=== PATIENT | male | born 1960 | race Caucasian/White ===

== ENCOUNTER 2021-01-29 18:45 | Inpatient (IN) | payer BC ==
[2021-01-29] MEDS ORDERED: IPRATROPIUM-ALBUTEROL 3 ML NEB INHALATION STA (18:52)
--- NOTE | 2021-01-29 18:53 | ED ---
General Adult HPI - General Stated complaint: LAURENCE Time Seen by Provider: 01/29/21 18:51 - History of Present Illness Initial comments: Delano is a 60-year-old male with history of COPD, doesn't have established primary care in the stay as he recently moved from [place]. Patient presents the ER today via private vehicle for evaluation of shortness of breath and shivering. 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 Patient I'll 911 however they live early in the risk and a be a delay in EMS arrival therefore is undecided drive to the hospital. Upon arrival the patient was feeling too weak to get himself out of the car and required assistance. - Related Data Home Medications Medication Instructions Recorded Confirmed No Known Home Medications 01/29/21 01/29/21 Allergies Allergy/AdvReac Type Severity Reaction Status Date / Time No Known Allergies Allergy Verified 01/29/21 20:17 Review of Systems ROS Statement: Those systems with pertinent positive or pertinent negative responses have been documented in the HPI. ROS Other: All systems not noted in ROS Statement are negative. General Exam - General Exam Comments Initial Comments: Physical Exam GENERAL: Pale, irwin, covered in drywall dust HENT: Normocephalic, Atraumatic. EYES: PERRL, EOMI PULMONARY: Mild crackles CARDIOVASCULAR: Irregular ABDOMEN: Soft and nontender with normal bowel sounds. SKIN: Irwin : Deferred NEUROLOGIC: Patient is alert and oriented x3. Moving all extremities spontaneously MUSCULOSKELETAL: Normal extremities with adequate strength and full range of motion. No lower extremity swelling or edema. No calf tenderness. PSYCHIATRIC: Normal psychiatric evaluation. Course Vital Signs 01/29/21 01/29/21 01/29/21 18:48 18:54 19:02 Temperature 97.3 F L Pulse Rate 67 76 63 Respiratory 20 22 22 Rate Blood Pressure 136/96 O2 Sat by Pulse 100 Oximetry 01/29/21 19:12 Temperature Pulse Rate 74 Respiratory 24 Rate Blood Pressure 128/84 O2 Sat by Pulse 100 Oximetry EKG Findings - EKG Comments: EKG Findings:: EKG was obtained due to chest pain, EKG was obtained at 1900, rate is 61 rhythm is narrow complex irregular atrial fibrillation, QRS 90, QTC [address] elevations in 23 and aVF, ST depressions in aVL and aVR and V1 and V2. This concerning for an inferior wall AR. Medical Decision Making - Medical Decision Making Patient was pulled out of a private vehicle by nursing staff placed in a wheelchair and rolled to the resuscitation bay, patient was awake alert and oriented shivering complaining of being cold mild chest pain, shortness of breath generalized weakness Patient's arms were cleaned and IV access was obtained, he was placed on supplemental oxygen, EKG was obtained and suggestive of an inferior wall AR Code STEMI was activated, patient care was discussed with Dr. Wong Cath is currently occupied with a STEMI, Dr. Wong recommends thrombolytics Patient care was discussed with pharmacist Leanne who ordered appropriate weight- based thrombolytics for STEMI Patient care was discussed with Dr. De of the [facility] hospitalist group as well as Dr. Newman lace stripper who accepts the admission Patient received IV fluids, aspirin, morphine and heparin nitro was held due to this being a inferior wall AR Receive telephone call from Dr. Wong, Work Force Advisor is no available, thrombolytics or at bedside have not been administered, patient to be transferred Work Force Advisor The patient remained awake alert oriented and hemodynamically stable at the time of transfer to Work Force Advisor - Lab Data Result diagrams: 01/29/21 18:59 01/29/21 18:59 Lab Results 01/29/21 01/29/21 01/29/21 Range/Units 18:59 18:59 18:59 WBC 19.4 H (3.8-10.6) k/uL RBC 4.73 (4.30-5.90) m/uL Hgb 15.5 (13.0-17.5) gm/dL Hct 46.8 (39.0-53.0) % MCV 99.1 (80.0-100.0) fL MCH 32.8 (25.0-35.0) pg MCHC 33.1 (31.0-37.0) g/dL RDW 14.1 (11.5-15.5) % Plt Count 290 (150-450) k/uL MPV 7.4 Neutrophils % (Manual) 59 % Lymphocytes % (Manual) 35 % Monocytes % (Manual) 3 % Eosinophils % (Manual) 3 % Neutrophils # (Manual) 11.45 H (1.3-7.7) k/uL Lymphocytes # (Manual) 6.79 H (1.0-4.8) k/uL Monocytes # (Manual) 0.58 (0-1.0) k/uL Eosinophils # (Manual) 0.58 (0-0.7) k/uL Nucleated RBCs 0 (0-0) /100 WBC Polychromasia Present PT 10.0 (9.0-12.0) sec INR 0.9 (<1.2) APTT 18.0 L (22.0-30.0) sec Sodium 142 (137-145) mmol/L Potassium 5.2 H (3.5-5.1) mmol/L Chloride 107 (98-107) mmol/L Carbon Dioxide 16 L (22-30) mmol/L Anion Gap 19 mmol/L BUN 34 H (9-20) mg/dL Creatinine 2.27 H (0.66-1.25) mg/dL Est GFR (CKD-EPI)AfAm 35 (>60 ml/min/1.73 sqM) Est GFR (CKD-EPI)NonAf 30 (>60 ml/min/1.73 sqM) Glucose 151 H (74-99) mg/dL Plasma Lactic Acid Dax (0.7-2.0) mmol/L Calcium 10.9 H (8.4-10.2) mg/dL Total Bilirubin 1.0 (0.2-1.3) mg/dL AST 41 (17-59) U/L ALT 24 (4-49) U/L Alkaline Phosphatase 95 (38-126) U/L Creatine Kinase 113 (55-170) U/L Troponin I (0.000-0.034) ng/mL Total Protein 7.8 (6.3-8.2) g/dL Albumin 5.1 H (3.5-5.0) g/dL Coronavirus (PCR) (Not Detectd) 01/29/21 01/29/21 01/29/21 Range/Units 18:59 18:59 18:59 WBC (3.8-10.6) k/uL RBC (4.30-5.90) m/uL Hgb (13.0-17.5) gm/dL Hct (39.0-53.0) % MCV (80.0-100.0) fL MCH (25.0-35.0) pg MCHC (31.0-37.0) g/dL RDW (11.5-15.5) % Plt Count (150-450) k/uL MPV Neutrophils % (Manual) % Lymphocytes % (Manual) % Monocytes % (Manual) % Eosinophils % (Manual) % Neutrophils # (Manual) (1.3-7.7) k/uL Lymphocytes # (Manual) (1.0-4.8) k/uL Monocytes # (Manual) (0-1.0) k/uL Eosinophils # (Manual) (0-0.7) k/uL Nucleated RBCs (0-0) /100 WBC Polychromasia PT (9.0-12.0) sec INR (<1.2) APTT (22.0-30.0) sec Sodium (137-145) mmol/L Potassium (3.5-5.1) mmol/L Chloride (98-107) mmol/L Carbon Dioxide (22-30) mmol/L Anion Gap mmol/L BUN (9-20) mg/dL Creatinine (0.66-1.25) mg/dL Est GFR (CKD-EPI)AfAm (>60 ml/min/1.73 sqM) Est GFR (CKD-EPI)NonAf (>60 ml/min/1.73 sqM) Glucose (74-99) mg/dL Plasma Lactic Acid Dax 9.2 H* (0.7-2.0) mmol/L Calcium (8.4-10.2) mg/dL Total Bilirubin (0.2-1.3) mg/dL AST (17-59) U/L ALT (4-49) U/L Alkaline Phosphatase (38-126) U/L Creatine Kinase (55-170) U/L Troponin I 0.019 (0.000-0.034) ng/mL Total Protein (6.3-8.2) g/dL Albumin (3.5-5.0) g/dL Coronavirus (PCR) Not Detected (Not Detectd) Disposition Clinical Impression: STEMI (ST elevation myocardial infarction) Disposition: ADMITTED IP TO THIS [facility] Condition: Serious Is patient prescribed a controlled substance at d/c from ED?: No
[2021-01-29] MEDS ORDERED: SODIUM CHLORIDE 0.9% 1,000 ML IV SCH (19:00)
[2021-01-29] MEDS ORDERED: NITROGLYCERIN SL TABS 0.4 MG TAB SUBLINGUAL PRN (19:01)
[2021-01-29] MEDS ORDERED: HEPARIN SODIUM 1,000 UN/ML (10ML VL) IV ONE (19:01)
[2021-01-29] MEDS ORDERED: ASPIRIN 81 MG PO STA (19:01)
[2021-01-29] MEDS: SODIUM CHLORIDE 0.9% 500 ML 500 ML IV SCH ×2 (19:05→22:42)
[2021-01-29] MEDS ORDERED: ATORVASTATIN 80 MG TAB PO STA ×2 (19:06→22:04)
--- NOTE | 2021-01-29 19:22 | XR ---
EXAMINATION TYPE: XR chest 1V portable DATE OF EXAM: 01/29/2021 COMPARISON: NONE HISTORY: Weakness. Chest pain TECHNIQUE: FINDINGS: Heart and mediastinum are normal. Lungs are clear of infiltrate. There is no pleural effusi on. There are chest leads. There are no hilar masses. IMPRESSION: No active cardiopulmonary disease.
[2021-01-29 19:24] LABS: HCT 46.8 % (39.0-53.0); HGB 15.5 gm/dL (13.0-17.5); MCH 32.8 pg (25.0-35.0); MCHC 33.1 g/dL (31.0-37.0); MCV 99.1 fL (80.0-100.0); Mean Platelet Volume 7.4; Platelet Count 290 k/uL (150-450); RBC 4.73 m/uL (4.30-5.90); RDW 14.1 % (11.5-15.5); WBC 19.4 k/uL (3.8-10.6)
[2021-01-29] MEDS ORDERED: NALOXONE 0.4 MG/ML 1 ML VIAL IV PRN (19:24)
[2021-01-29] MEDS ORDERED: MORPHINE SULFATE 4 MG/ML SYRINGE IV PRN (19:24)
[2021-01-29 19:26] LABS: Albumin 5.1 g/dL (3.5-5.0); Calcium 10.9 mg/dL (8.4-10.2); Potassium 5.2 mmol/L (3.5-5.1); Total Protein 7.8 g/dL (6.3-8.2)
[2021-01-29] MEDS ORDERED: ALTEPLASE IV ONE ×2 (19:30→19:45)
[2021-01-29 19:31] LABS: INR 0.9 (<1.2)
[2021-01-29 19:49] LABS: Eosinophils # (M) 0.58 k/uL (0-0.7); Lymphocytes # (M) 6.79 k/uL (1.0-4.8); Monocytes # (M) 0.58 k/uL (0-1.0); Neutrophils # (M) 11.45 k/uL (1.3-7.7); Neutrophils % (M) 59 %; Nucleated Red Blood Cells 0 /100 WBC (0-0); Polychromasia Present; Total Cells Counted 100
[2021-01-29] MEDS ORDERED: fentaNYL (PF) 50 MCG/ML 2 ML AMP ONE (19:54)
[2021-01-29] MEDS ORDERED: LIDOCAINE 1% INJ 10MG/ML (20 ML MDV) ONE (19:54)
[2021-01-29] MEDS ORDERED: LIDOCAINE 1% INJ 10MG/ML (20 ML MDV) SQ ONE (19:57)
[2021-01-29] MEDS ORDERED: SODIUM CHLORIDE 0.9% 1,000 ML IV ONE (20:00)
[2021-01-29] MEDS ORDERED: MIDAZOLAM 2 MG/2 ML VIAL IV ONE (20:00)
[2021-01-29] MEDS ORDERED: TIROFIBAN 12.5MG-250ML NS 250 ML IV ONE ×2 (20:15)
[2021-01-29] MEDS ORDERED: NOREPINEPHRINE 4 MG in SODIUM CHLORIDE 0.9% 250 ML IV ONE (20:15)
[2021-01-29] MEDS ORDERED: IOPAMIDOL-370 100ML BTL INJ ONE ×2 (20:27→20:31)
[2021-01-29] MEDS ORDERED: CLOPIDOGREL 75 MG TAB ONE (20:34)
[2021-01-29] MEDS ORDERED: CLOPIDOGREL 75 MG TAB PO ONE (20:47)
[2021-01-29 21:06] LABS: Glucose,Whole Blood 116 mg/dL (75-99)
--- NOTE | 2021-01-29 21:46 | CONS ---
CONSULTATION ADDENDUM TO CONSULTATION 01/29/2021: Our initial plan was that we were going to give thrombolytics, but first case was done expeditiously, so we have decided not to give thrombolytics but take to the for emergent cardiac catheterization, possible primary angioplasty. NITIN / FELY: [id number] / MTDD
--- NOTE | 2021-01-29 21:51 | CONS ---
CONSULTATION CHIEF COMPLAINT: Acute inferior wall myocardial infarction HISTORY OF PRESENT ILLNESS: This is a 60-year-old gentleman with history of hypertension who used to live in [place] and has moved to [place] about 6 months ago, comes in with sudden onset chest pain that started about half an hour prior to coming to the emergency room in the hospital. His EKG showed acute ST-segment elevation in the inferior leads. The ER doctor has called in a STEMI. I was at that time in the dental laboratory worker treating a patient who came earlier with acute anterolateral myocardial infarction. After talking to the java developer analyst who has not yet started the 1st angioplasty, i.e., it was decided the best thing to do would be to give thrombolytic to the patient. I spoke to the ER physician and advised to give thrombolytic therapy as per protocol. She is going to give whatever thrombolytic is available. The available thrombolytic in this hospital. We do not have a 2nd dental laboratory worker team nor do we have a 2nd manager presentation so thrombolytic is the best we can do at this time. After I finished the case I went and evaluated the patient in the emergency room. The patient was still in significant chest pain, but was hemodynamically stable, was in atrial fibrillation with controlled ventricular rate. There were waiting to get the thrombolytic from pharmacy. PAST MEDICAL HISTORY: Significant for hypertension. MEDICATIONS: He states that he is not on any medications. ALLERGIES: No known drug allergies. FAMILY HISTORY: Negative for premature coronary artery disease. SOCIAL HISTORY: Significant for smoking. There is no history of EtOH abuse. He uses marijuana occasionally. REVIEW OF SYSTEMS: HEENT is unremarkable. CARDIAC as described above. RESPIRATORY negative. GI negative. GENITOURINARY: Negative. ALLERGY/IMMUNOLOGY: Negative. SKIN negative. MUSCULOSKELETAL negative. ENDOCRINE negative. DERM: Negative. CONSTITUTIONAL: Negative. ONCOLOGICAL negative. INFORMATION SCIENTIST: Negative. EXAM: The patient is comfortable at rest. Vital signs are stable. There is no jugular venous distention. Carotid upstroke is normal. There is no bruit. CHEST exam reveals good air entry bilaterally. HEART exam reveals first and second heart sounds. No gallop. No murmur. No rub. ABDOMEN is soft, nontender. Examination of EXTREMITIES did not reveal any edema. Peripheral pulses are felt. I do not have labs at this time. ASSESSMENT: Acute inferior wall myocardial infarction. PLAN: Patient will receive thrombolytics per protocol. He will also receive aspirin, heparin, IV fluids and depending upon his response, we will proceed with cardiac catheterization. I explained to the patient the rationale for giving thrombolytics. He understands and is in agreement with the plans. NITIN / FELY: [id number] /
[2021-01-30 04:27] LABS: Basophils % (A) 0 %; Eosinophils % (A) 1 %; HCT 37.3 % (39.0-53.0); Lymphocytes # (A) 1.6 k/uL (1.0-4.8); Lymphocytes % (A) 17 %; MCH 32.4 pg (25.0-35.0); MCHC 32.8 g/dL (31.0-37.0); MCV 98.7 fL (80.0-100.0); Mean Platelet Volume 7.8; Monocytes # (A) 0.6 k/uL (0-1.0); Monocytes % (A) 7 %; Neutrophils # (A) 6.6 k/uL (1.3-7.7); Neutrophils % (A) 73 %; Platelet Count 183 k/uL (150-450); RBC 3.77 m/uL (4.30-5.90); RDW 14.2 % (11.5-15.5)
[2021-01-30 04:39] LABS: HGB 12.2 gm/dL (13.0-17.5)
[2021-01-30 04:57] LABS: Calcium 8.9 mg/dL (8.4-10.2); Potassium 5.1 mmol/L (3.5-5.1)
--- NOTE | 2021-01-30 08:10 | US ---
EXAMINATION TYPE: US renals and bladder DATE OF EXAM: 01/30/2021 COMPARISON: NONE CLINICAL HISTORY: 60-year-old male MOR[place]. TECHNIQUE: Multiple sonographic images of the kidneys and bladder are obtained. FINDINGS: Coach Cleaner notes: Exam done portable. EXAM MEASUREMENTS: Right Kidney: 10.3 x 4.0 x 4.6 cm Left Kidney: 10.0 x 3.9 x 3.5 cm Right Kidney: Scattered small cysts with largest measuring 1.4 x 1.7 x 1.7cm Left Kidney: A few small cortical cysts, largest measuring 1.0cm No hydronephrosis on either side. Bladder: wnl Bilateral Jets seen: yes IMPRESSION: Scattered benign cortical cysts measuring up to 1.7 cm on the right and 1.0 cm on the left. No hydron ephrosis.
--- NOTE | 2021-01-30 08:16 | PTCA ---
PERCUTANEOUSTRANS CORORONARY ANGIOGRAPHY DATE OF SERVICE: 01/29/2021 PROCEDURE: PTCA and stenting of a totally occluded proximal RCA performed in the setting of an acute inferior ST-elevation myocardial infarction. PERFORMED BY: Dr. Mary Velez. Moderate conscious sedation time was 35 minutes. Patient was administered Versed. Oxygen saturation, hemodynamics and EKG were monitored closely. 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 Wong, who performed a cardiac cath which revealed total occlusion of the proximal RCA. I performed PTCA expeditiously and then took selective injections of the left coronary artery and checked LV pressures but did not perform LV gram. The LV end-diastolic pressure was 8 mmHg. There was no gradient. The left coronary system did not have any significant disease. The LAD and circumflex had only minor irregularities. RCA was a dominant vessel which was totally occluded in the proximal portion with a significant amount of thrombus burden. CUFFER PROCEDURE DETAILS: A standard right Kevin guide catheter was used to cannulate the right coronary artery. A run-through wire was used to cross the lesion. A 3.0 caliber 15 mm Trek balloon was used to pre-dilate the lesion. Multiple inflations were given with some recoil. I then deployed an 18 mm long Xience stent of 3.25 caliber and 18 mm length. Postdilatation was performed in the mid segment with a 3.5 caliber 15 mm long NC Trek balloon for 30 seconds at 12 atmospheres. Patient had chest pain and inferior ST elevation. Excellent angiographic result was achieved with remarkable improvement in angiographic appearance and flow. There was a IRENE-3 flow. There was complete resolution of chest pain and near-normalization of the EKG. Excellent result was achieved. Reperfusion was accomplished within 83 minutes. We had another acute PA on the table when patient arrived to the ER. Excellent result was achieved. Results were discussed with the patient and family. An Angio-Seal device was used to secure hemostasis. The patient was sent to the ICU in stable condition. Smoking cessation discussion occurred. He was advised to work with smoking cessation. The patient will be on dual antiplatelet therapy and beta blockers. He received heparin and Aggrastat drip. ACT was 255. The patient received 600 mg of Plavix orally. He received Levophed drip transiently. The patient was off the Levophed drip. He was sent to ICU only on an Aggrastat drip. NITIN / DRAKEN: [id number] /
[2021-01-30] MEDS: SODIUM CHLORIDE 0.9% 1,000 ML IV SCH ×2 (08:51→08:52)
--- NOTE | 2021-01-30 09:00 | P.CNPUL ---
History of Present Illness Consult date: 01/30/21 Reason for consult: chest pain History of present illness: 60-year-old male patient came in with an acute inferior wall myocardial infarction. Taken to the Compliance And Control Analyst and the patient was found to have a total RCA occlusion, proximal RCA and the patient underwent an emergent angioplasty and stenting of the RCA. Troponins peaked at 46. Patient currently is in the intensive care unit. Free of any chest pain and hemodynamically stable on no pr essors. He had an acute kidney injury which is also improving and creatinine is down to 1.7. Is currently on a combination of aspirin and Plavix. He is also on high-dose statins. Overnight, no cardiac arrhythmias of been noted. Left ventricle end-diastolic pressure was nonelevated on the cardiac catheterization and echocardiogram showing preserved LV function with an ejection fraction of 40-45%. He is a chronic smoker. No other major risk factors. Note that the patient was in nature fibrillation at time of admission along with ST segment elevation in the inferior leads and subsequently post cardiac catheterization and stenting he converted him to normal sinus rhythm. 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 Review of Systems Constitutional: Reports as per HPI Eyes: denies as per HPI, denies blurred vision, denies bulging eye, denies decreased vision, denies diplopia, denies discharge, denies dry eye, denies irritation, denies itching, denies pain, denies photophobia, denies loss of peripheral vision, denies loss of vision, denies tunnel vision/blind spots Ears: deny: decreased hearing, ear discharge, earache, tinnitus Ears, nose, mouth and throat: Reports as per HPI Cardiovascular: Reports as per HPI, Reports chest pain Respiratory: Reports as per HPI Gastrointestinal: Reports as per HPI Genitourinary: Reports as per HPI Musculoskeletal: Reports as per HPI Musculoskeletal: absent: ankle pain, ankle stiffness, ankle swelling, as per HPI, elbow pain, elbow stiffness, elbow swelling, foot pain, foot stiffness, foot swelling, hand pain, hand stiffness, hand swelling, hip pain, hip stiffness, hip swelling, knee pain, knee stiffness, knee swelling, shoulder pain, shoulder stiffness, shoulder swelling, wrist pain, wrist stiffness, wrist swelling Integumentary: Reports as per HPI Neurological: Reports as per HPI Psychiatric: Reports as per HPI Endocrine: Reports as per HPI Hematologic/Lymphatic: Reports as per HPI Allergic/Immunologic: Reports as per HPI Past Medical History Past Medical History: COPD History of Any Multi-Drug Resistant Organisms: None Reported Past Surgical History: No Surgical Hx Reported Additional Past Anesthesia/Blood Transfusion Reaction / Comment(s): No Hx of transfusion Smoking Status: Current every day smoker Past Alcohol Use History: Rare Past Drug Use History: None Reported Medications and Allergies Home Medications Medication Instructions Recorded Confirmed Type No Known Home Medications 01/29/21 01/29/21 History Allergies Allergy/AdvReac Type Severity Reaction Status Date / Time No Known Allergies Allergy Verified 01/29/21 20:17 Physical Exam Vitals: Vital Signs Temp Pulse Resp BP Pulse Ox 01/30/21 07:00 48 L 16 128/74 98 01/30/21 06:30 84 21 115/78 97 01/30/21 06:00 53 L 15 114/73 98 01/30/21 05:30 62 20 121/71 97 01/30/21 05:00 57 L 13 113/69 96 01/30/21 04:30 62 12 116/74 97 01/30/21 04:00 55 L 16 107/69 98 01/30/21 03:30 58 L 16 108/70 98 01/30/21 03:00 60 17 113/69 97 01/30/21 02:30 56 L 13 112/70 98 01/30/21 02:00 56 L 14 102/71 98 01/30/21 01:30 56 L 13 107/75 98 01/30/21 01:00 58 L 16 113/72 98 01/30/21 00:30 54 L 16 106/74 98 01/30/21 00:00 87 15 96/68 98 01/29/21 23:30 87 15 109/75 98 01/29/21 23:00 77 20 99/75 98 01/29/21 22:30 79 17 98/64 98 01/29/21 22:00 77 16 95/71 98 01/29/21 21:30 98.6 F 78 18 101/70 98 01/29/21 21:04 93 6 L 01/29/21 19:12 74 24 128/84 100 01/29/21 19:02 63 22 01/29/21 18:54 76 22 01/29/21 18:48 97.3 F L 67 20 136/96 100 Intake and Output 01/29/21 01/30/21 01/30/21 22:59 06:59 14:59 Intake Total 963 900 Output Total 175 810 Balance 788 90 Intake: IV 963 900 Sodium Chloride 0.9% 1, 200 900 000 ml @ 100 mls/hr IV . Q10H ON LICENSE OF [facility] Rx#:[id number] Output: Urine 175 810 Other: Weight 64.8 kg 64.8 kg The patient appeared well nourished and normally developed. Vital signs as documented. Head exam is unremarkable. No scleral icterus or corneal arcus noted. Neck is without jugular venous distension, thyromegaly, or carotid bruits. Carotid upstrokes are brisk bilaterally. Lungs are clear to auscultation and percussion. Cardiac exam reveals the PMI to be normally sized and situated. Rhythm is regular. First and second heart sounds normal. No murmurs, rubs or gallops. Abdominal exam reveals normal bowel sounds, no masses, no organomegaly and no aortic enlargement. Extremities are nonedematous and both femoral and pedal pulses are normal.Examination of the skin revealed no evidence of significant rashes, suspicious appearing nevi or other concerning lesions.Neurologically, the patient is awake and alert and the patient does not have any focal neurological deficit. Cranial nerves are essentially intact. Results - Laboratory Findings CBC and BMP: 01/30/21 04:12 01/30/21 04:12 PT/INR, D-dimer PT 10.0 sec (9.0-12.0) 01/29/21 18:59 INR 0.9 (<1.2) 01/29/21 18:59 Abnormal lab findings: Abnormal Labs 01/29/21 01/29/21 01/29/21 18:59 18:59 18:59 WBC 19.4 H RBC Hgb Hct Neutrophils # (Manual) 11.45 H Lymphocytes # (Manual) 6.79 H APTT 18.0 L Sodium Potassium 5.2 H Chloride Carbon Dioxide 16 L BUN 34 H Creatinine 2.27 H Glucose 151 H POC Glucose (mg/dL) Plasma Lactic Acid Dax Calcium 10.9 H Troponin I Albumin 5.1 H 01/29/21 01/29/21 01/29/21 18:59 21:05 22:07 WBC RBC Hgb Hct Neutrophils # (Manual) Lymphocytes # (Manual) APTT Sodium Potassium Chloride Carbon Dioxide BUN Creatinine Glucose POC Glucose (mg/dL) 116 H Plasma Lactic Acid Dax 9.2 H* Calcium Troponin I 7.010 H* Albumin 01/30/21 01/30/21 01/30/21 01:13 04:12 04:12 WBC RBC 3.77 L Hgb 12.2 L D Hct 37.3 L Neutrophils # (Manual) Lymphocytes # (Manual) APTT Sodium 135 L Potassium Chloride 110 H Carbon Dioxide 19 L BUN 36 H Creatinine 1.74 H Glucose 116 H POC Glucose (mg/dL) Plasma Lactic Acid Dax Calcium Troponin I 28.300 H* Albumin 01/30/21 04:12 WBC RBC Hgb Hct Neutrophils # (Manual) Lymphocytes # (Manual) APTT Sodium Potassium Chloride Carbon Dioxide BUN Creatinine Glucose POC Glucose (mg/dL) Plasma Lactic Acid Dax Calcium Troponin I 46.400 H* Albumin - Diagnostic Findings Chest x-ray: image reviewed Assessment and Plan Plan: [address] segment elevation myocardial infarction. Posterior emergent cardiac catheterization and stenting of the RCA. Patient is currently free of any chest pain and hemodynamically stable being monitored in the intensive care unit. Cardiac rhythm is sinus. Echocardiogram is in progress. Estimated ejection fraction is around 40-45% and the patient's left anterior end-diastolic pressure is nonelevated. 2 acute atrial fibrillation with STEMI, converted into normal sinus rhythm. Currently hemodynamically stable. No hypotension 3 acute kidney injury, improving and the creatinine is down to 1.7 4 chronic smoker currently smoking less than a pack of cigarettes a day 5 COPD, mild, inactive, stable Plan Complete Echocardiogram Aspirin and Plavix High-dose statins with Lipitor 80 mg by mouth daily awaiting LDL levels Metoprolol 12. 5 mg by mouth twice a day Smoking cessation counseling Nicotine patch if needed Cardiology follow-up.
--- NOTE | 2021-01-30 09:52 | ECHOF ---
Referral Reason:LV function MEASUREMENTS -------- HEIGHT: 182.9 cm WEIGHT: 68.0 kg BP: 128/74 RVIDd: 2.7 cm (< 3.3) IVSd: 0.9 cm (0.6 - 1.1) LVIDd: 4.1 cm (3.9 - 5.3) LVPWd: 1.3 cm (0.6 - 1.1) IVSs: 1.2 cm LVIDs: 3.8 cm LVPWs: 1.4 cm LA Diam: 3.8 cm (2.7 - 3.8) Ao Diam: 3.6 cm (2.0 - 3.7) AV Cusp: 1.6 cm (1.5 - 2.6) MV EXCURSION: 21.150 mm (> 18.000) MV EF SLOPE: 146 mm/s (70 - 150) EPSS: 0.1 cm MV E Geo: 0.73 m/s MV DecT: 236 ms MV A Geo: 0.53 m/s MV E/A Ratio: 1.36 RAP: 5.00 mmHg RVSP: 13.59 mmHg FINDINGS -------- Sinus rhythm. This was a technically good study. The left ventricular size is normal. Left ventricular wall thickness is normal. Overall left vent ricular systolic function is mildly impaired with, an EF between 45 - 50 %. Inferior Hypokinesis The right ventricle is normal in size. The left atrial size is normal. The right atrial size is normal. The aortic valve is trileaflet, and appears structurally normal. No aortic stenosis or regurgitation. Mild mitral regurgitation is present. Mild tricuspid regurgitation present. Right ventricular systolic pressure is normal at < 35 mmHg. There is no pulmonic regurgitation present. There is no pericardial effusion. CONCLUSIONS -------- 1. The left ventricular size is normal. 2. Left ventricular wall thickness is normal. 3. Overall left ventricular systolic function is mildly impaired with, an EF between 45 - 50 %. 4. Inferior Hypokinesis 5. The right ventricle is normal in size. 6. The left atrial size is normal. 7. The right atrial size is normal. 8. The aortic valve is trileaflet, and appears structurally normal. No aortic stenosis or regurgitati on. 9. Mild mitral regurgitation is present. 10. Mild tricuspid regurgitation present. 11. There is no pericardial effusion. WIRE BRUSH OPERATOR: Megan Alston RDCS
[2021-01-30] MEDS: ATORVASTATIN 80 MG TAB PO SCH (09:59)
[2021-01-30] MEDS: FAMOTIDINE 20 MG/2 ML VIAL IV SCH (09:59)
[2021-01-30] MEDS: CLOPIDOGREL 75 MG TAB PO SCH (09:59)
[2021-01-30] MEDS: METOPROLOL TARTRATE 12.5 MG TAB PO SCH ×2 (09:59→20:52)
[2021-01-30] MEDS: ASPIRIN 81 MG PO SCH (09:59)
[2021-01-30] MEDS: HEPARIN SODIUM,PORCINE/PF 5,000 UNIT/0.5 ML SYRINGE SQ SCH ×2 (09:59→19:49)
[2021-01-30] MEDS: NICOTINE 14MG/24HR PATCH TRANSDERM SCH (09:59)
[2021-01-30] MEDS: LOSARTAN 25 MG TAB PO SCH ×2 (10:01→19:49)
--- NOTE | 2021-01-30 10:35 | P.PN ---
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 The patient presented to the hospital yesterday with chest pain and was found to have ST segment elevation in the inferior leads. Patient underwent cardiac catheterization with Dr. Wong. He underwent stenting of the RCA by Dr. Velez. According to cardiology consult notes, the patient was in atrial fibrillation yesterday during his acute SD. He has been maintaining sinus mechanism since that time. Echocardiogram completed revealing ejection fraction 45-50%. Inferior hypokinesis. Mild mitral regurgitation. Mild tricuspid regurgitation. PHYSICAL EXAM: VITAL SIGNS: Reviewed. GENERAL: Well-developed in no acute distress. NECK: Supple. No JVD or thyromegaly LUNGS: Respirations even and unlabored. Lungs essentially clear to auscultation bilaterally. HEART: Regular rate and rhythm. S1 and S2 heard. EXTREMITIES: Normal range of motion. No clubbing or cyanosis. Peripheral pulses intact. No lower extremity edema. Right groin soft with no hematoma present. ASSESSMENT: STEMI, status post stenting of the RCA Acute kidney injury Nicotine dependence Occasional marijuana use PLAN: Continue current cardiac medications including aspirin, Plavix, Lipitor, losartan, and metoprolol Continue telemetry monitoring Smoking cessation recommended Further recommendations pending patient's course Nurse practitioner note has been reviewed by physician. Signing provider agrees with the documented findings, assessment, and plan of care. Objective - Vital Signs Vital signs: Vital Signs Temp 98.3 F 01/30/21 08:00 Pulse 57 L 01/30/21 09:30 Resp 18 01/30/21 09:30 BP 122/71 01/30/21 09:30 Pulse Ox 97 01/30/21 09:30 Intake & Output 01/29/21 01/30/21 01/30/21 18:59 06:59 18:59 Intake Total 1863 200 Output Total 985 100 Balance 878 100 Weight 68.039 kg 64.8 kg Intake: IV 1863 200 Sodium Chloride 0.9% 1, 1100 200 000 ml @ 100 mls/hr IV . Q10H [facility] Rx#:[id number] Output: Urine 985 100 - Labs CBC & Chem 7: 01/30/21 04:12 01/30/21 04:12 Labs: Abnormal Lab Results - Last 24 Hours (Table) 01/29/21 01/29/21 01/29/21 Range/Units 18:59 18:59 18:59 WBC 19.4 H (3.8-10.6) k/uL RBC (4.30-5.90) m/uL Hgb (13.0-17.5) gm/dL Hct (39.0-53.0) % Neutrophils # (Manual) 11.45 H (1.3-7.7) k/uL Lymphocytes # (Manual) 6.79 H (1.0-4.8) k/uL APTT 18.0 L (22.0-30.0) sec Sodium (137-145) mmol/L Potassium 5.2 H (3.5-5.1) mmol/L Chloride (98-107) mmol/L Carbon Dioxide 16 L (22-30) mmol/L BUN 34 H (9-20) mg/dL Creatinine 2.27 H (0.66-1.25) mg/dL Glucose 151 H (74-99) mg/dL POC Glucose (mg/dL) (75-99) mg/dL Plasma Lactic Acid Dax (0.7-2.0) mmol/L Calcium 10.9 H (8.4-10.2) mg/dL Troponin I (0.000-0.034) ng/mL Albumin 5.1 H (3.5-5.0) g/dL 01/29/21 01/29/21 01/29/21 Range/Units 18:59 21:05 22:07 WBC (3.8-10.6) k/uL RBC (4.30-5.90) m/uL Hgb (13.0-17.5) gm/dL Hct (39.0-53.0) % Neutrophils # (Manual) (1.3-7.7) k/uL Lymphocytes # (Manual) (1.0-4.8) k/uL APTT (22.0-30.0) sec Sodium (137-145) mmol/L Potassium (3.5-5.1) mmol/L Chloride (98-107) mmol/L Carbon Dioxide (22-30) mmol/L BUN (9-20) mg/dL Creatinine (0.66-1.25) mg/dL Glucose (74-99) mg/dL POC Glucose (mg/dL) 116 H (75-99) mg/dL Plasma Lactic Acid Dax 9.2 H* (0.7-2.0) mmol/L Calcium (8.4-10.2) mg/dL Troponin I 7.010 H* (0.000-0.034) ng/mL Albumin (3.5-5.0) g/dL 01/30/21 01/30/21 01/30/21 Range/Units 01:13 04:12 04:12 WBC (3.8-10.6) k/uL RBC 3.77 L (4.30-5.90) m/uL Hgb 12.2 L D (13.0-17.5) gm/dL Hct 37.3 L (39.0-53.0) % Neutrophils # (Manual) (1.3-7.7) k/uL Lymphocytes # (Manual) (1.0-4.8) k/uL APTT (22.0-30.0) sec Sodium 135 L (137-145) mmol/L Potassium (3.5-5.1) mmol/L Chloride 110 H (98-107) mmol/L Carbon Dioxide 19 L (22-30) mmol/L BUN 36 H (9-20) mg/dL Creatinine 1.74 H (0.66-1.25) mg/dL Glucose 116 H (74-99) mg/dL POC Glucose (mg/dL) (75-99) mg/dL Plasma Lactic Acid Dax (0.7-2.0) mmol/L Calcium (8.4-10.2) mg/dL Troponin I 28.300 H* (0.000-0.034) ng/mL Albumin (3.5-5.0) g/dL 01/30/21 Range/Units 04:12 WBC (3.8-10.6) k/uL RBC (4.30-5.90) m/uL Hgb (13.0-17.5) gm/dL Hct (39.0-53.0) % Neutrophils # (Manual) (1.3-7.7) k/uL Lymphocytes # (Manual) (1.0-4.8) k/uL APTT (22.0-30.0) sec Sodium (137-145) mmol/L Potassium (3.5-5.1) mmol/L Chloride (98-107) mmol/L Carbon Dioxide (22-30) mmol/L BUN (9-20) mg/dL Creatinine (0.66-1.25) mg/dL Glucose (74-99) mg/dL POC Glucose (mg/dL) (75-99) mg/dL Plasma Lactic Acid Dax (0.7-2.0) mmol/L Calcium (8.4-10.2) mg/dL Troponin I 46.400 H* (0.000-0.034) ng/mL Albumin (3.5-5.0) g/dL
--- NOTE | 2021-01-30 13:29 | P.HPIM ---
History of Present Illness This is a pleasant 60 years old male with past medical history of COPD. 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 Patient presents with dyspnea and chest pain of one-day duration. Found to have acute STEMI of the inferior leads, he underwent emergent cardiac cath and PCI with stent placement in the right coronary artery which is totally occluded. Also he developed A. fib but no RVR. This morning his in the ICU, lying in bed, denies chest pain or dyspnea, No other Complaints. No fever or change in urine or bowel habits. Vital are stable. Mild Anemia with Hemoglobin 12.2. This Metabolic Panel Showing Potassium of 135, Creatinine 1.7, Toes 2.2 upon Admission, Unknown Baseline Chest x-ray: No acute process EKG showing atrial fibrillation with a rate of [address] elevation in the inferior leads of 2, 3 and aVF. Patient had emergent cardiac cath Review of Systems CONSTITUTIONAL: No fever, no malaise, no fatigue. HEENT: No recent visual problems or hearing problems. Denied any sore throat. CARDIOVASCULAR: No orthopnea, PND, no palpitations, no syncope. PULMONARY: No shortness of breath, no cough, no hemoptysis. GASTROINTESTINAL: No diarrhea, no nausea, no vomiting, no abdominal pain. Normoactive bowel sounds. NEUROLOGICAL: No headaches, no weakness, no numbness. HEMATOLOGICAL: Denies any bleeding or petechiae. GENITOURINARY: Denies any burning micturition, frequency, or urgency. MUSCULOSKELETAL/RHEUMATOLOGICAL: Denies any joint pain, swelling, or any muscle pain. ENDOCRINE: Denies any polyuria or polydipsia. Past Medical History Past Medical History: COPD Past Surgical History: No Surgical Hx Reported Smoking Status: Current every day smoker Past Alcohol Use History: Rare Past Drug Use History: None Reported Medications and Allergies Home Medications Medication Instructions Recorded Confirmed Type No Known Home Medications 01/29/21 01/29/21 History Allergies Allergy/AdvReac Type Severity Reaction Status Date / Time No Known Allergies Allergy Verified 01/29/21 20:17 Physical Exam Vitals: Vital Signs Temp Pulse Resp BP Pulse Ox 01/30/21 06:30 84 21 115/78 97 01/30/21 06:00 53 L 15 114/73 98 01/30/21 05:30 62 20 121/71 97 08/19/21 05:00 57 L 13 113/69 96 01/30/21 04:30 62 12 116/74 97 01/30/21 04:00 55 L 16 107/69 98 01/30/21 03:30 58 L 16 108/70 98 01/30/21 03:00 60 17 113/69 97 01/30/21 02:30 56 L 13 112/70 98 01/30/21 02:00 56 L 14 102/71 98 01/30/21 01:30 56 L 13 107/75 98 01/30/21 01:00 58 L 16 113/72 98 01/30/21 00:30 54 L 16 106/74 98 01/30/21 00:00 87 15 96/68 98 01/29/21 23:30 87 15 109/75 98 01/29/21 23:00 77 20 99/75 98 01/29/21 22:30 79 17 98/64 98 01/29/21 22:00 77 16 95/71 98 01/29/21 21:30 98.6 F 78 18 101/70 98 01/29/21 21:04 93 6 L 01/29/21 19:12 74 24 128/84 100 01/29/21 19:02 63 22 01/29/21 18:54 76 22 01/29/21 18:48 97.3 F L 67 20 136/96 100 Intake and Output 01/29/21 01/29/21 01/30/21 14:59 22:59 06:59 Intake Total 963 900 Output Total 175 810 Balance 788 90 Intake: IV 963 900 Sodium Chloride 0.9% 1, 200 900 000 ml @ 100 mls/hr IV . Q10H [facility] Rx#:[id number] Output: Urine 175 810 Other: Weight 68.039 kg 64.8 kg GENERAL: The patient is alert and oriented x3, not in any acute distress. Well developed, well nourished. HEENT: Pupils are round and equally reacting to light. EOMI. No scleral icterus. No conjunctival pallor. Normocephalic, atraumatic. No pharyngeal erythema. No thyromegaly. CARDIOVASCULAR: S1 and S2 present. No murmurs, rubs, or gallops. PULMONARY: Chest is clear to auscultation, no wheezing or crackles. ABDOMEN: Soft, nontender, nondistended, normoactive bowel sounds. No palpable organomegaly. MUSCULOSKELETAL: No joint swelling or deformity. EXTREMITIES: No cyanosis, clubbing, or pedal edema. NEUROLOGICAL: Gross neurological examination did not reveal any focal deficits. SKIN: No rashes. No petechiae Results CBC & Chem 7: 01/30/21 04:12 01/30/21 04:12 Labs: Abnormal Lab Results - Last 24 Hours (Table) 01/29/21 01/29/21 01/29/21 Range/Units 18:59 18:59 18:59 WBC 19.4 H (3.8-10.6) k/uL RBC (4.30-5.90) m/uL Hgb (13.0-17.5) gm/dL Hct (39.0-53.0) % Neutrophils # (Manual) 11.45 H (1.3-7.7) k/uL Lymphocytes # (Manual) 6.79 H (1.0-4.8) k/uL APTT 18.0 L (22.0-30.0) sec Sodium (137-145) mmol/L Potassium 5.2 H (3.5-5.1) mmol/L Chloride (98-107) mmol/L Carbon Dioxide 16 L (22-30) mmol/L BUN 34 H (9-20) mg/dL Creatinine 2.27 H (0.66-1.25) mg/dL Glucose 151 H (74-99) mg/dL POC Glucose (mg/dL) (75-99) mg/dL Plasma Lactic Acid Dax (0.7-2.0) mmol/L Calcium 10.9 H (8.4-10.2) mg/dL Troponin I (0.000-0.034) ng/mL Albumin 5.1 H (3.5-5.0) g/dL 01/29/21 01/29/21 01/29/21 Range/Units 18:59 21:05 22:07 WBC (3.8-10.6) k/uL RBC (4.30-5.90) m/uL Hgb (13.0-17.5) gm/dL Hct (39.0-53.0) % Neutrophils # (Manual) (1.3-7.7) k/uL Lymphocytes # (Manual) (1.0-4.8) k/uL APTT (22.0-30.0) sec Sodium (137-145) mmol/L Potassium (3.5-5.1) mmol/L Chloride (98-107) mmol/L Carbon Dioxide (22-30) mmol/L BUN (9-20) mg/dL Creatinine (0.66-1.25) mg/dL Glucose (74-99) mg/dL POC Glucose (mg/dL) 116 H (75-99) mg/dL Plasma Lactic Acid Dax 9.2 H* (0.7-2.0) mmol/L Calcium (8.4-10.2) mg/dL Troponin I 7.010 H* (0.000-0.034) ng/mL Albumin (3.5-5.0) g/dL 01/30/21 01/30/21 01/30/21 Range/Units 01:13 04:12 04:12 WBC (3.8-10.6) k/uL RBC 3.77 L (4.30-5.90) m/uL Hgb 12.2 L D (13.0-17.5) gm/dL Hct 37.3 L (39.0-53.0) % Neutrophils # (Manual) (1.3-7.7) k/uL Lymphocytes # (Manual) (1.0-4.8) k/uL APTT (22.0-30.0) sec Sodium 135 L (137-145) mmol/L Potassium (3.5-5.1) mmol/L Chloride 110 H (98-107) mmol/L Carbon Dioxide 19 L (22-30) mmol/L BUN 36 H (9-20) mg/dL Creatinine 1.74 H (0.66-1.25) mg/dL Glucose 116 H (74-99) mg/dL POC Glucose (mg/dL) (75-99) mg/dL Plasma Lactic Acid Dax (0.7-2.0) mmol/L Calcium (8.4-10.2) mg/dL Troponin I 28.300 H* (0.000-0.034) ng/mL Albumin (3.5-5.0) g/dL 01/30/21 Range/Units 04:12 WBC (3.8-10.6) k/uL RBC (4.30-5.90) m/uL Hgb (13.0-17.5) gm/dL Hct (39.0-53.0) % Neutrophils # (Manual) (1.3-7.7) k/uL Lymphocytes # (Manual) (1.0-4.8) k/uL APTT (22.0-30.0) sec Sodium (137-145) mmol/L Potassium (3.5-5.1) mmol/L Chloride (98-107) mmol/L Carbon Dioxide (22-30) mmol/L BUN (9-20) mg/dL Creatinine (0.66-1.25) mg/dL Glucose (74-99) mg/dL POC Glucose (mg/dL) (75-99) mg/dL Plasma Lactic Acid Dax (0.7-2.0) mmol/L Calcium (8.4-10.2) mg/dL Troponin I 46.400 H* (0.000-0.034) ng/mL Albumin (3.5-5.0) g/dL Assessment and Plan Assessment: Acute STEMI status post emergent PCI and possible stent placement in the RCA (final report is pending) Atrial fibrillation's with controlled rate, not on anticoagulation on admission Elevated creatinine, with acute kidney injury, unknown baseline and could have elements of chronic kidney disease Plan: Continue with dual antiplatelet therapy with aspirin and Plavix, continue with IV hydration. We will defer to the tool design checker team the decision about anticoagulation This is a pleasant 6 years old male presents with STEMI of the inferior limits status post cardiac cath and stent placement. Check bladder scan and renal ultrasound Labs and medication were reviewed.. Continue same treatment. Continue with symptomatic treatment. Resume home medication. Monitor lytes and vitals. DVT and GI prophylaxis. Further recommendations depends on the clinical course of the patient DVT prophylaxis: Subcutaneous heparin GI Prophylaxis: Pepcid
[2021-01-30 18:11] LABS: Glucose,Whole Blood 101 mg/dL (75-99)
[2021-01-30 20:12] LABS: Glucose,Whole Blood 96 mg/dL (75-99)
[2021-01-31 06:29] LABS: Glucose,Whole Blood 78 mg/dL (75-99)
[2021-01-31 10:25] LABS: Calcium 9.4 mg/dL (8.4-10.2); Potassium 4.7 mmol/L (3.5-5.1)
[2021-01-31] MEDS: CLOPIDOGREL 75 MG TAB PO SCH (10:26)
[2021-01-31] MEDS: ATORVASTATIN 80 MG TAB PO SCH (10:26)
[2021-01-31] MEDS: ASPIRIN 81 MG PO SCH (10:26)
[2021-01-31] MEDS: FAMOTIDINE 20 MG/2 ML VIAL IV SCH (10:26)
[2021-01-31] MEDS: HEPARIN SODIUM,PORCINE/PF 5,000 UNIT/0.5 ML SYRINGE SQ SCH ×2 (10:27→20:08)
[2021-01-31] MEDS: NICOTINE 14MG/24HR PATCH TRANSDERM SCH (10:30)
[2021-01-31] MEDS: carvediloL 3.125 MG TAB PO SCH ×2 (10:30→17:13)
[2021-01-31] MEDS: METOPROLOL TARTRATE 12.5 MG TAB PO SCH (10:34)
[2021-01-31] MEDS: LOSARTAN 25 MG TAB PO SCH (10:34)
--- NOTE | 2021-01-31 11:34 | P.PN ---
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 The patient presented to the hospital yesterday with chest pain and was found to have ST segment elevation in the inferior leads. Patient underwent cardiac catheterization with Dr. Wong. He underwent stenting of the RCA by Dr. Velez. According to cardiology consult notes, the patient was in atrial fibrillation yesterday during his acute DE. He has been maintaining sinus mechanism since that time. Echocardiogram completed revealing ejection fraction 45-50%. Inferior hypokinesis. Mild mitral regurgit ation. Mild tricuspid regurgitation. 01/31/2021 Pt seen and examined resting comfortably in bed in no acute distress. He denies chest pain, shortness of breath, dizziness or palpitations. Blood pressure 103/59 heart rate 67 afebrile and maintaining oxygen saturation on room air. Laboratory data reviewed, sodium 136, potassium 4.7 and creatinine 1.64. Telemetry tracings reviewed, he is having runs of non-sustained wide complex ventricular tachycardia. PHYSICAL EXAM: GENERAL: Well-developed in no acute distress. NECK: Supple. No JVD or thyromegaly LUNGS: Respirations even and unlabored. Lungs essentially clear to auscultation bilaterally. HEART: Regular rate and rhythm. S1 and S2 heard. EXTREMITIES: Normal range of motion. No clubbing or cyanosis. Peripheral pul ses intact. No lower extremity edema. Right groin soft with no hematoma present. ASSESSMENT: STEMI, status post stenting of the RCA Acute kidney injury Nonsustained ventricular tachycardia Ischemic cardiomyopathy Dyslipidemia Nicotine dependence Occasional marijuana use PLAN: Continue dual anti-platelet therapy along with atorvastatin. Decrease losartan and change beta yesy to coreg 3.125mg BID. Continue telemetry monitoring. Repeat kidney function in the morning. Check magnesium and TSH. Further recommendations pending patient's course Nurse practitioner note has been reviewed by physician. Signing provider agrees with the documented findings, assessment, and plan of care. Objective - Vital Signs Vital signs: Vital Signs Temp 98.1 F 01/31/21 08:00 Pulse 67 01/31/21 08:00 Resp 16 01/31/21 08:00 BP 103/59 01/31/21 08:00 Pulse Ox 98 01/31/21 08:00 Intake & Output 08/19/21 08/20/21 08/20/21 18:59 06:59 18:59 Intake Total 637 240 Output Total 800 200 Balance -163 40 Intake: IV 400 Sodium Chloride 0.9% 1, 400 000 ml @ 100 mls/hr IV . Q10H [facility] Rx#:[id number] Oral 237 240 Output: Urine 800 200 Other: Voiding Method Toilet # Voids 2 - Labs CBC & Chem 7: 01/30/21 04:12 01/31/21 09:45 Labs: Abnormal Lab Results - Last 24 Hours (Table) 01/30/21 01/31/21 Range/Units 18:08 09:45 Sodium 136 L (137-145) mmol/L Chloride 109 H (98-107) mmol/L Carbon Dioxide 21 L (22-30) mmol/L BUN 32 H (9-20) mg/dL Creatinine 1.64 H (0.66-1.25) mg/dL POC Glucose (mg/dL) 101 H (75-99) mg/dL Microbiology - Last 24 Hours (Table) 01/29/21 18:59 Blood Culture - Preliminary Blood No Growth after 24 hours 01/29/21 18:59 Blood Culture - Preliminary Blood No Growth after 24 hours
[2021-01-31 12:06] LABS: Magnesium 1.8 mg/dL (1.6-2.3)
[2021-01-31 13:20] VITALS: BMI 18.8
--- NOTE | 2021-01-31 17:39 | P.PN ---
Subjective Progress Note Date: 01/31/21 60-year-old male patient came in with an acute inferior wall myocardial infarction. Taken to the [employer] Bus [employer] and the patient was found to have a total RCA occlusion, proximal RCA and the patient underwent an emergent angioplasty and stenting of the RCA. Troponins peaked at 46. Patient currently is in the i ntensive care unit. Free of any chest pain and hemodynamically stable on no pressors. He had an acute kidney injury which is also improving and creatinine is down to 1.7. Is currently on a combination of aspirin and Plavix. He is also on high-dose statins. Overnight, no cardiac arrhythmias of been noted. Left ventricle end-diastolic pressure was nonelevated on the cardiac catheterization and echocardiogram showing preserved LV function with an ejection fraction of 40-45%. He is a chronic smoker. No other major risk factors. Note that the patient was in nature fibrillation at time of admission along with ST segment elevation in the inferior leads and subsequently post cardiac catheterization and stenting he converted him to normal sinus rhythm. 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 On 01/31/2021 patient seen in follow-up on selective care unit, she is calm and comfortable, he is resting in bed, noncompressive chest pain, no shortness of breath. He was transferred out of intensive care unit yesterday, his had no ac mickey events overnight. No signs have been stable. He is on room air, breathing comfortably, is satting 98% on room air, his been afebrile, blood pressure stable, he is on aspirin, high-dose Lipitor, Coreg 3.125 mg twice daily, he is on Cozaar. He is on nicotine patch. He is on subcu heparin 5000 mg every 12 hours, lung sounds are clear. Echocardiogram showed EF of 45-50%, mild MR, mild TR, right ventricular systolic pressure was less than 35 mmHg. Today's labs have been reviewed, his renal profile slightly improved, with BUN of 32, creatinine of 1.64. Objective - Vital Signs Vital signs: Vital Signs Temp 98.0 F 01/31/21 16:00 Pulse 67 01/31/21 16:00 Resp 16 01/31/21 16:00 BP 124/69 01/31/21 16:00 Pulse Ox 98 01/31/21 16:00 Intake & Output 01/30/21 01/31/21 01/31/21 18:59 06:59 18:59 Intake Total 637 480 Output Total 800 200 Balance -163 280 Weight 64.8 kg Intake: IV 400 Sodium Chloride 0.9% 1, 400 000 ml @ 100 mls/hr IV . Q10H [facility] Rx#:[id number] Oral 237 480 Output: Urine 800 200 Other: Voiding Method Toilet # Voids 2 2 # Bowel Movements 1 - Exam GENERAL EXAM: Alert, very pleasant, thin-looking 60-year-old white male, resting comfortably in bed, on room air, comfortable in no apparent distress. HEAD: Normocephalic/atraumatic. EYES: Normal reaction of pupils, equal size. Conjunctiva pink, sclera white. NOSE: Clear with pink turbinates. THROAT: No erythema or exudates. NECK: No masses, no JVD, no thyroid enlargement, no adenopathy. CHEST: No chest wall deformity. Symmetrical expansion. LUNGS: Equal air entry with no crackles, wheeze, rhonchi or dullness. CVS: Regular rate and rhythm, normal S1 and S2, no gallops, no murmurs, no rubs ABDOMEN: Soft, nontender. No hepatosplenomegaly, normal bowel sounds, no guarding or rigidity. EXTREMITIES: No clubbing, no edema, no cyanosis, 2+ pulses and upper and lower extremities. MUSCULOSKELETAL: Muscle strength and tone normal. SPINE: No scoliosis or deformity SKIN: No rashes CENTRAL NERVOUS SYSTEM: Alert and oriented -3. No focal deficits, tone is normal in all 4 extremities. PSYCHIATRIC: Alert and oriented -3. Appropriate affect. Intact judgment and insight. - Labs CBC & Chem 7: 01/30/21 04:12 01/31/21 09:45 Labs: Abnormal Lab Results - Last 24 Hours (Table) 01/30/21 01/31/21 Range/Units 18:08 09:45 Sodium 136 L (137-145) mmol/L Chloride 109 H (98-107) mmol/L Carbon Dioxide 21 L (22-30) mmol/L BUN 32 H (9-20) mg/dL Creatinine 1.64 H (0.66-1.25) mg/dL POC Glucose (mg/dL) 101 H (75-99) mg/dL Microbiology - Last 24 Hours (Table) 01/29/21 18:59 Blood Culture - Preliminary Blood No Growth after 24 hours 0818 18:59 Blood Culture - Preliminary Blood No Growth after 24 hours Assessment and Plan Plan: Assessment: [address] segment elevation myocardial infarction. Posterior emergent cardiac catheterization and stenting of the RCA. Patient is currently free of any chest pain and hemodynamically stable being monitored in the intensive care unit. Cardiac rhythm is sinus. Echocardiogram is in progress. Estimated ejection fraction is around 40-45% and the patient's left anterior end-diastolic pressure is nonelevated. 2 acute atrial fibrillation with STEMI, converted into normal sinus rhythm. Currently hemodynamically stable. No hypotension 3 acute kidney injury, improving and the creatinine is down to 1.7 4 chronic smoker currently smoking less than a pack of cigarettes a day 5 COPD, mild, inactive, stable Plan Patient is doing well vital signs are stable positive chest pain No shortness of breath, no acute events overnight Increase activity as tolerated Smoking cessation was advised Continue dual antiplatelet therapy, high-dose Lipitor, beta blockers were added today and ARBs Cardiology is following I performed a history & physical examination of the patient and discussed their management with my nurse practitioner, Theresa Veloz. I reviewed the nurse practitioner's note and agree with the documented findings and plan of care. L jerardo sounds are positive for clear breath sounds throughout the lung hawk. The findings and the impression was discussed with the patient. I attest to the documentation by the nurse practitioner. Time with Patient: Less than 30
[2021-01-31 19:28] LABS: Chol/HDL Ratio 3.48; LDL Cholesterol,Calculated 84.8 mg/dL (0.0-131.0); VLDL Calculation 24.2 mg/dL (5.00-40.00)
[2021-02-01 03:15] VITALS: RESP 16
[2021-02-01] MEDS: carvediloL 3.125 MG TAB PO SCH (06:33)
[2021-02-01] MEDS: HEPARIN SODIUM,PORCINE/PF 5,000 UNIT/0.5 ML SYRINGE SQ SCH (08:05)
[2021-02-01] MEDS: NICOTINE 14MG/24HR PATCH TRANSDERM SCH (08:05)
[2021-02-01] MEDS: ATORVASTATIN 80 MG TAB PO SCH (08:05)
[2021-02-01] MEDS: ASPIRIN 81 MG PO SCH (08:05)
[2021-02-01] MEDS: CLOPIDOGREL 75 MG TAB PO SCH (08:07)
[2021-02-01] MEDS ORDERED: LOSARTAN 25 MG TAB PO SCH (09:00)
[2021-02-01] MEDS ORDERED: FAMOTIDINE 20 MG TAB PO SCH (09:00)
--- NOTE | 2021-02-01 10:07 | P.PN ---
Subjective Progress Note Date: 01/31/21 60 years old male with past medical history of COPD. 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 Patient presents with dyspnea and chest pain of one-day duration. Found to have acute STEMI of the inferior leads, he underwent emergent cardiac cath and PCI with stent placement in the right coronary artery which is totally occluded. Also he developed A. fib but no RVR. This morning his in the ICU, lying in bed, denies chest pain or dyspnea, No other Complaints. No fever or change in urine or bowel habits. Vital are stable. Mild Anemia with Hemoglobin 12.2. This Metabolic Panel Showing Potassium of 135, Creatinine 1.7, Toes 2.2 upon Admission, Unknown Baseline Chest x-ray: No acute process EKG showing atrial fibrillation with a rate of [address] elevation in the inferior leads of 2, 3 and aVF. Patient had emergent cardiac cath Objective - Vital Signs Vital signs: Vital Signs Temp 98.1 F 01/31/21 08:00 Pulse 67 01/31/21 08:00 Resp 16 01/31/21 08:00 BP 103/59 01/31/21 08:00 Pulse Ox 98 01/31/21 08:00 Intake & Output 01/30/21 01/31/21 01/31/21 18:59 06:59 18:59 Intake Total 637 240 Output Total 800 200 Balance -163 40 Intake: IV 400 Sodium Chloride 0.9% 1, 400 000 ml @ 100 mls/hr IV . Q10H [facility] Rx#:[id number] Oral 237 240 Output: Urine 800 200 Other: Voiding Method Toilet # Voids 2 - Exam GENERAL: The patient is alert and oriented x3, not in any acute distress. Well developed, well nourished. HEENT: Pupils are round and equally reacting to light. EOMI. No scleral icterus. No conjunctival pallor. Normocephalic, atraumatic. No pharyngeal erythema. No thyromegaly. CARDIOVASCULAR: S1 and S2 present. No murmurs, rubs, or gallops. PULMONARY: Chest is clear to auscultation, no wheezing or crackles. ABDOMEN: Soft, nontender, nondistended, normoactive bowel sounds. No palpable organomegaly. MUSCULOSKELETAL: No joint swelling or deformity. EXTREMITIES: No cyanosis, clubbing, or pedal edema. NEUROLOGICAL: Gross neurological examination did not reveal any focal deficits. SKIN: No rashes. No petechiae - Labs CBC & Chem 7: 01/30/21 04:12 01/31/21 09:45 Labs: Abnormal Lab Results - Last 24 Hours (Table) 01/30/21 01/31/21 Range/Units 18:08 09:45 Sodium 136 L (137-145) mmol/L Chloride 109 H (98-107) mmol/L Carbon Dioxide 21 L (22-30) mmol/L BUN 32 H (9-20) mg/dL Creatinine 1.64 H (0.66-1.25) mg/dL POC Glucose (mg/dL) 101 H (75-99) mg/dL Microbiology - Last 24 Hours (Table) 01/29/21 18:59 Blood Culture - Preliminary Blood No Growth after 24 hours 01/29/21 18:59 Blood Culture - Preliminary Blood No Growth after 24 hours Assessment and Plan Assessment: Acute STEMI status post emergent PCI and possible stent placement in the RCA (final report is pending) Atrial fibrillation's with controlled rate, not on anticoagulation on admission Elevated creatinine, with acute kidney injury, unknown baseline and could have elements of chronic kidney disease Plan: Continue with dual antiplatelet therapy with aspirin and Plavix, continue with IV hydration. We will defer to the quality rep team the decision about anticoagulation This is a pleasant 6 years old male presents with STEMI of the inferior limits status post cardiac cath and stent placement. Check bladder scan and renal ultrasound Labs and medication were reviewed.. Continue same treatment. Continue with symptomatic treatment. Resume home medication. Monitor lytes and vitals. DVT and GI prophylaxis. Further recommendations depends on the clinical course of the patient DVT prophylaxis: Subcutaneous heparin GI Prophylaxis: Pepcid
[2021-02-01 10:57] VITALS: BP 106/60; PULSE 54; TEMP 98
[2021-02-01 11:15] LABS: Calcium 9.5 mg/dL (8.4-10.2); Potassium 4.3 mmol/L (3.5-5.1)
--- NOTE | 2021-02-01 13:41 | P.PN ---
Subjective Patient is doing well. No chest discomfort no dizziness lightheadedness or palpitations He is lying comfortably in bed On examination his heart sounds are normal normal S1 normal S2 no murmurs no gallop or rub Breath sounds are clear no rhonchi no crackles Blood pressure is 106/60 mmHg pulse rate in the 50s afebrile Impression acute inferior wall MD Status post PCI Plan Patient should be discharged on aspirin 81 mg by mouth daily, Plavix 75 mg by mouth daily Atorvastatin 80 mg by mouth daily Carvedilol 3.125 mg twice daily Losartan 25 mg daily Follow-up with Dr. Hernandez Patient to go home on dual antiplatelet therapy and current medications and follow with Dr. Hernandez Objective - Vital Signs Vital signs: Vital Signs Temp 98 F 02/01/21 10:56 Pulse 54 L 02/01/21 10:56 Resp 16 02/01/21 10:56 BP 106/60 02/01/21 10:56 Pulse Ox 98 02/01/21 10:56 Intake & Output 01/31/21 02/01/21 02/01/21 18:59 06:59 18:59 Intake Total 480 490 Output Total 200 Balance 280 490 Weight 64.8 kg Intake: Oral 480 490 Output: Urine 200 Other: Voiding Method Toilet Toilet Toilet # Voids 2 1 2 # Bowel Movements 1 - Labs CBC & Chem 7: 01/30/21 04:12 02/01/21 10:19 Labs: Abnormal Lab Results - Last 24 Hours (Table) 02/01/21 Range/Units 10:19 Chloride 109 H (98-107) mmol/L BUN 38 H (9-20) mg/dL Creatinine 1.60 H (0.66-1.25) mg/dL Glucose 109 H (74-99) mg/dL Microbiology - Last 24 Hours (Table) 01/29/21 18:59 Blood Culture - Preliminary Blood No Growth after 48 hours 01/29/21 18:59 Blood Culture - Preliminary Blood No Growth after 48 hours
== END 2021-02-01 15:38 | disposition home or self-care (01) | DRG 247 ==
LOC: EC 18:45 → 2SICU 19:25 → 3SCARD 01-30 16:46
PROVIDERS: ADMIT Internal Medicine; ATTEND Internal Medicine
PROC: 027034Z Dilation of Coronary Artery, One Artery with Drug-eluting Intraluminal Device, Percutaneous Approach (ICD-10-PCS; principal; 2021-01-29 19:45)
PROC: B2111ZZ Fluoroscopy of Multiple Coronary Arteries using Low Osmolar Contrast (ICD-10-PCS; principal; 2021-01-29 19:45)
PROC: 4A023N7 Measurement of Cardiac Sampling and Pressure, Left Heart, Percutaneous Approach (ICD-10-PCS; principal; 2021-01-29 19:45)
DX: I21.19 ST elevation (STEMI) myocardial infarction involving other coronary artery of inferior wall (principal); N17.9 Acute kidney failure, unspecified; I47.2 Ventricular tachycardia; F17.210 Nicotine dependence, cigarettes, uncomplicated; D64.9 Anemia, unspecified; E78.5 Hyperlipidemia, unspecified; F12.90 Cannabis use, unspecified, uncomplicated; I10 Essential (primary) hypertension; I25.10 Atherosclerotic heart disease of native coronary artery without angina pectoris; I25.5 Ischemic cardiomyopathy; I25.82 Chronic total occlusion of coronary artery; Z79.899 Other long term (current) drug therapy; Z79.82 Long term (current) use of aspirin; J44.9 Chronic obstructive pulmonary disease, unspecified; I48.91 Unspecified atrial fibrillation
CPT/HCPCS: 71045; 76770; 80048; 80053; 80061; 82550; 83605; 83735; 84443; 84484; 85025; 85610; 85730; 87040; 87635; 93005; 93306; 93458; 94640; 94760; 96374; 99285

== ENCOUNTER → 2023-11-25 | Outpatient (CLI) | payer BC ==
[2023-11-25 18:26] LABS: ALT 30 U/L (10-49); AST 28 U/L (14-35); Chol/HDL Ratio 2.49 Ratio; LDL Cholesterol,Calculated 41.3 mg/dL (0.0-131.0); VLDL Calculation 13.76 mg/dL (5.00-40.00)
== END | disposition home or self-care (01) ==
LOC: LABWHC1 13:49
PROVIDERS: ATTEND Internal Medicine Cardiovascular Disease
DX: E78.2 Mixed hyperlipidemia (principal)
CPT/HCPCS: 36415; 80061; 84450; 84460

== ENCOUNTER 2024-03-31 20:21 | Emergency (ER) | payer BC ==
--- NOTE | 2024-03-31 20:50 | ED ---
General Adult HPI - General Source: patient Mode of arrival: ambulatory Limitations: no limitations <Efrem Matta - Last Filed: 03/31/24 20:49> <Boston Ramos - Last Filed: 04/01/24 01:15> - General Stated complaint: SOB Time Seen by Provider: 03/31/24 20:50 - History of Present Illness Initial comments: 63-year-old male presenting with chief complaint of shortness of breath. Has been worsening over the past few days. No chest pain. He is a previous smoker. (Efrem Matta) - Related Data Previous Rx's Medication Instructions Recorded Atorvastatin [Lipitor] 80 mg PO DAILY #90 tab 01/31/21 Clopidogrel [Plavix] 75 mg PO DAILY #90 tab 01/31/21 Aspirin 81 mg PO DAILY #90 tab 02/01/21 Losartan [Cozaar] 25 mg PO DAILY #90 tab 02/01/21 carvediloL [Coreg] 3.125 mg PO BID #180 tablet 02/01/21 Albuterol Inhaler [Ventolin Hfa 2 puff INHALATION Q4HR PRN #8 gm 04/01/24 Inhaler] Azithromycin [Zithromax] 0 mg PO DIRECTED #6 tab 04/01/24 predniSONE 60 mg PO DAILY #30 tab 04/01/24 Allergies Allergy/AdvReac Type Severity Reaction Status Date / Time No Known Allergies Allergy Verified 03/31/24 20:53 Review of Systems ROS Other: All systems not noted in ROS Statement are negative. <Efrem Matta - Last Filed: 03/31/24 20:49> ROS Other: All systems not noted in ROS Statement are negative. <Boston Ramos - Last Filed: 04/01/24 01:15> ROS Statement: Those systems with pertinent positive or pertinent negative responses have been documented in the HPI. Past Medical History Past Medical History: COPD History of Any Multi-Drug Resistant Organisms: None Reported Past Surgical History: No Surgical Hx Reported Additional Past Anesthesia/Blood Transfusion Reaction / Comment(s): No Hx of transfusion Smoking Status: Current every day smoker Past Alcohol Use History: Rare Past Drug Use History: None Reported <Efrem Matta - Last Filed: 03/31/24 20:49> General Exam <Efrem Matta - Last Filed: 03/31/24 20:49> - General Exam Comments Initial Comments: Visual Physical Exam Vital signs reviewed General: Well-appearing, nontoxic, no acute distress. Head: Normocephalic, atraumatic Eyes: PERRLA, EOMI ENT: Airway patent Chest: Nonlabored breathing Skin: No visual rash, normal skin tone Neuro: Alert and oriented 3 Musculoskeletal: No gross abnormalities (Efrem Matta) Course Vital Signs 03/31/24 03/31/24 04/01/24 20:48 23:15 00:05 Temperature 98.4 F Pulse Rate 69 86 68 Respiratory 20 19 Rate Blood Pressure 134/81 123/83 O2 Sat by Pulse 98 98 Oximetry 04/01/24 00:11 Temperature Pulse Rate 70 Respiratory Rate Blood Pressure O2 Sat by Pulse Oximetry Medical Decision Making <Efrem Matta - Last Filed: 03/31/24 20:49> - Lab Data Result diagrams: 03/31/24 21:54 03/31/24 21:54 <Boston Ramos - Last Filed: 04/01/24 01:15> - Medical Decision Making I performed the quick note portion of this visit, electronically signed Efrem Matta PA-C (Efrem Matta) - Lab Data Lab Results 03/31/24 03/31/24 03/31/24 Range/Units 21:54 21:54 21:54 WBC 15.8 H (3.8-10.6) k/uL RBC 5.46 (4.30-5.90) m/uL Hgb 16.9 (13.0-17.5) gm/dL Hct 51.9 (39.0-53.0) % MCV 95.1 (80.0-100.0) fL MCH 31.0 (25.0-35.0) pg MCHC 32.6 (31.0-37.0) g/dL RDW 13.1 (11.5-15.5) % Plt Count 237 (150-450) k/uL MPV 6.9 Neutrophils % 79 % Lymphocytes % 13 % Monocytes % 6 % Eosinophils % 1 % Basophils % 0 % Neutrophils # 12.5 H (1.3-7.7) k/uL Lymphocytes # 2.1 (1.0-4.8) k/uL Monocytes # 0.9 (0-1.0) k/uL Eosinophils # 0.1 (0-0.7) k/uL Basophils # 0.1 (0-0.2) k/uL PT 10.4 (10.0-12.5) sec INR 0.9 (<1.2) APTT 21.4 L (22.0-30.0) sec D-Dimer (<0.60) mg/L FEU Sodium 143 (137-145) mmol/L Potassium 4.3 (3.5-5.1) mmol/L Chloride 114 H (98-107) mmol/L Carbon Dioxide 19 L (22-30) mmol/L Anion Gap 10 mmol/L BUN 30 H (9-20) mg/dL Creatinine 2.29 H (0.66-1.25) mg/dL Est GFR (CKD-EPI)AfAm 34 (>60 ml/min/1.73 sqM) Est GFR (CKD-EPI)NonAf 29 (>60 ml/min/1.73 sqM) Glucose 98 (74-99) mg/dL Plasma Lactic Acid Dax (0.7-2.0) mmol/L Calcium 9.8 (8.4-10.2) mg/dL Magnesium 1.8 (1.6-2.3) mg/dL Total Bilirubin 2.4 H (0.2-1.3) mg/dL AST 28 (17-59) U/L ALT 26 (4-49) U/L Alkaline Phosphatase 88 (38-126) U/L Troponin I (0.000-0.034) ng/mL NT-Pro-B Natriuret Pep 376 pg/mL Total Protein 7.6 (6.3-8.2) g/dL Albumin 4.9 (3.5-5.0) g/dL Influenza Type A (PCR) (Not Detectd) Influenza Type B (PCR) (Not Detectd) RSV (PCR) (Not Detectd) SARS-CoV-2 (PCR) (Not Detectd) 03/31/24 03/31/24 03/31/24 Range/Units 21:54 21:54 23:40 WBC (3.8-10.6) k/uL RBC (4.30-5.90) m/uL Hgb (13.0-17.5) gm/dL Hct (39.0-53.0) % MCV (80.0-100.0) fL MCH (25.0-35.0) pg MCHC (31.0-37.0) g/dL RDW (11.5-15.5) % Plt Count (150-450) k/uL MPV Neutrophils % % Lymphocytes % % Monocytes % % Eosinophils % % Basophils % % Neutrophils # (1.3-7.7) k/uL Lymphocytes # (1.0-4.8) k/uL Monocytes # (0-1.0) k/uL Eosinophils # (0-0.7) k/uL Basophils # (0-0.2) k/uL PT (10.0-12.5) sec INR (<1.2) APTT (22.0-30.0) sec D-Dimer (<0.60) mg/L FEU Sodium (137-145) mmol/L Potassium (3.5-5.1) mmol/L Chloride (98-107) mmol/L Carbon Dioxide (22-30) mmol/L Anion Gap mmol/L BUN (9-20) mg/dL Creatinine (0.66-1.25) mg/dL Est GFR (CKD-EPI)AfAm (>60 ml/min/1.73 sqM) Est GFR (CKD-EPI)NonAf (>60 ml/min/1.73 sqM) Glucose (74-99) mg/dL Plasma Lactic Acid Dax 2.1 H* (0.7-2.0) mmol/L Calcium (8.4-10.2) mg/dL Magnesium (1.6-2.3) mg/dL Total Bilirubin (0.2-1.3) mg/dL AST (17-59) U/L ALT (4-49) U/L Alkaline Phosphatase (38-126) U/L Troponin I <0.012 (0.000-0.034) ng/mL NT-Pro-B Natriuret Pep pg/mL Total Protein (6.3-8.2) g/dL Albumin (3.5-5.0) g/dL Influenza Type A (PCR) Not Detected (Not Detectd) Influenza Type B (PCR) Not Detected (Not Detectd) RSV (PCR) Not Detected (Not Detectd) SARS-CoV-2 (PCR) Not Detected (Not Detectd) 04/01/24 Range/Units 00:00 WBC (3.8-10.6) k/uL RBC (4.30-5.90) m/uL Hgb (13.0-17.5) gm/dL Hct (39.0-53.0) % MCV (80.0-100.0) fL MCH (25.0-35.0) pg MCHC (31.0-37.0) g/dL RDW (11.5-15.5) % Plt Count (150-450) k/uL MPV Neutrophils % % Lymphocytes % % Monocytes % % Eosinophils % % Basophils % % Neutrophils # (1.3-7.7) k/uL Lymphocytes # (1.0-4.8) k/uL Monocytes # (0-1.0) k/uL Eosinophils # (0-0.7) k/uL Basophils # (0-0.2) k/uL PT (10.0-12.5) sec INR (<1.2) APTT (22.0-30.0) sec D-Dimer 1.98 H (<0.60) mg/L FEU Sodium (137-145) mmol/L Potassium (3.5-5.1) mmol/L Chloride (98-107) mmol/L Carbon Dioxide (22-30) mmol/L Anion Gap mmol/L BUN (9-20) mg/dL Creatinine (0.66-1.25) mg/dL Est GFR (CKD-EPI)AfAm (>60 ml/min/1.73 sqM) Est GFR (CKD-EPI)NonAf (>60 ml/min/1.73 sqM) Glucose (74-99) mg/dL Plasma Lactic Acid Dax (0.7-2.0) mmol/L Calcium (8.4-10.2) mg/dL Magnesium (1.6-2.3) mg/dL Total Bilirubin (0.2-1.3) mg/dL AST (17-59) U/L ALT (4-49) U/L Alkaline Phosphatase (38-126) U/L Troponin I (0.000-0.034) ng/mL NT-Pro-B Natriuret Pep pg/mL Total Protein (6.3-8.2) g/dL Albumin (3.5-5.0) g/dL Influenza Type A (PCR) (Not Detectd) Influenza Type B (PCR) (Not Detectd) RSV (PCR) (Not Detectd) SARS-CoV-2 (PCR) (Not Detectd) Disposition <MattaAnayfabby - Last Filed: 03/31/24 20:49> Is patient prescribed a controlled substance at d/c from ED?: No <Boston Ramos - Last Filed: 04/01/24 01:15> Clinical Impression: COPD (chronic obstructive pulmonary disease), Elevated d-dimer Disposition: HOME SELF-CARE Condition: Fair Instructions (If sedation given, give patient instructions): COPD (Chronic Obs tructive Pulmonary Disease) (ED) Additional Instructions: As we discussed, attempt to reduce your smoking use/exposure, or quit altogether. Prescriptions: predniSONE 60 mg PO DAILY #30 tab Albuterol Inhaler [Ventolin Hfa Inhaler] 2 puff INHALATION Q4HR PRN #8 gm PRN Reason: Wheezing Azithromycin [Zithromax] 0 mg PO DIRECTED #6 tab Referrals: None,Stated [Primary Care Provider] - 1-2 days Aamir Allen, DO [REFERRING] - 1-2 days Floridalma Newman MD [STAFF PHYSICIAN] - 1-2 days
[2024-03-31 22:13] LABS: Basophils # (A) 0.1 k/uL (0-0.2); Basophils % (A) 0 %; Eosinophils # (A) 0.1 k/uL (0-0.7); Eosinophils % (A) 1 %; HCT 51.9 % (39.0-53.0); HGB 16.9 gm/dL (13.0-17.5); Lymphocytes # (A) 2.1 k/uL (1.0-4.8); Lymphocytes % (A) 13 %; MCHC 32.6 g/dL (31.0-37.0); MCV 95.1 fL (80.0-100.0); Mean Platelet Volume 6.9; Monocytes # (A) 0.9 k/uL (0-1.0); Monocytes % (A) 6 %; Neutrophils # (A) 12.5 k/uL (1.3-7.7); Neutrophils % (A) 79 %; Platelet Count 237 k/uL (150-450); RBC 5.46 m/uL (4.30-5.90); RDW 13.1 % (11.5-15.5); WBC 15.8 k/uL (3.8-10.6)
--- NOTE | 2024-03-31 22:45 | XR ---
EXAMINATION TYPE: XR chest 2V DATE OF EXAM: 03/31/2024 COMPARISON: Chest x-ray January 29, 2021 HISTORY: Difficulty in breathing TECHNIQUE: Frontal and lateral views of the chest are obtained. FINDINGS: There is no suspicious new focal air space opacity, pleural effusion, or pneumothorax seen . The cardiac silhouette size is stable and within normal limits. The osseous structures are intac t. IMPRESSION: No acute cardiopulmonary process. No significant change from [facility], , 03/31/2024 10:42 PM
[2024-03-31 22:47] LABS: ALT 26 U/L (4-49); AST 28 U/L (17-59); African American GFR (CKD) 34 (>60 ml/min/1.73 sqM); Albumin 4.9 g/dL (3.5-5.0); Alkaline Phosphatase 88 U/L (38-126); Anion Gap 10 mmol/L; Blood Urea Nitrogen 30 mg/dL (9-20); Calcium 9.8 mg/dL (8.4-10.2); Carbon Dioxide 19 mmol/L (22-30); Chloride 114 mmol/L (98-107); Glucose 98 mg/dL (74-99); Magnesium 1.8 mg/dL (1.6-2.3); Non-African American GFR(CKD) 29 (>60 ml/min/1.73 sqM); Potassium 4.3 mmol/L (3.5-5.1); Sodium 143 mmol/L (137-145); Total Bilirubin 2.4 mg/dL (0.2-1.3); Total Protein 7.6 g/dL (6.3-8.2)
[2024-03-31 22:53] LABS: NT-Pro-B-Type Natriuretic Pept 376 pg/mL
[2024-03-31 23:02] LABS: INR 0.9 (<1.2); Prothrombin Time 10.4 sec (10.0-12.5)
[2024-03-31 23:22] LABS: Partial Thromboplastin Time 21.4 sec (22.0-30.0)
[2024-04-01] MEDS: ALBUTEROL NEBULIZED 2.5 MG/3 ML INHALATION STA ×2 (00:03→01:21)
[2024-04-01] MEDS: IPRATROPIUM-ALBUTEROL 3 ML NEB INHALATION STA (00:03)
[2024-04-01] MEDS: predniSONE 20 MG TAB PO STA (01:49)
[2024-04-01 01:51] VITALS: RESP 18
[2024-04-01 02:07] VITALS: BP 128/86; PULSE 86; TEMP 98.3
== END 2024-04-01 01:59 | disposition home or self-care (01) ==
LOC: EC 20:21
CPT/HCPCS: 36415; 71046; 80053; 83605; 83735; 83880; 84484; 85025; 85379; 85610; 85730; 87636; 93005; 94640; 99285

== ENCOUNTER 2024-04-01 19:19 | Observation (INO) | payer BC ==
--- NOTE | 2024-04-01 19:25 | ED ---
General Adult HPI - General Chief complaint: Shortness of Breath Stated complaint: LAURENCE Time Seen by Provider: 04/01/24 19:24 Source: patient Mode of arrival: wheelchair Limitations: no limitations - History of Present Illness Initial comments: Patient presents to the ED complaining of having increased dyspnea over the past couple of days. Patient states that he was seen in the ED yesterday for similar symptoms and provided with a neb treatment, which helped. Patient states that he has COPD and continues to smoke. Patient denies having any chest pain or any pain at all. Patient does admit to feeling very anxious and appears anxious on presentation to the ED. Patient denies fever or chills, headache, focal numbness/weakness/neuro deficit, chest pain or pressure, cough or cold symptoms, palpitations, dizziness, abdominal pain, nausea/vomiting/diarrhea, bloody or melanotic stool, dysuria or urinary symptoms, decreased urine output, leg or ca lf swelling or pain, or any other symptoms or complaints. Patient states that he can get a ride home from the ED tonight if discharged. - Related Data Previous Rx's Medication Instructions Recorded Atorvastatin [Lipitor] 80 mg PO DAILY #90 tab 01/31/21 Clopidogrel [Plavix] 75 mg PO DAILY #90 tab 01/31/21 Aspirin 81 mg PO DAILY #90 tab 02/01/21 Losartan [Cozaar] 25 mg PO DAILY #90 tab 02/01/21 carvediloL [Coreg] 3.125 mg PO BID #180 tablet 02/01/21 Albuterol Inhaler [Ventolin Hfa 2 puff INHALATION Q4HR PRN #8 gm 04/01/24 Inhaler] Azithromycin [Zithromax] 0 mg PO DIRECTED #6 tab 04/01/24 predniSONE 60 mg PO DAILY #30 tab 04/01/24 Allergies Allergy/AdvReac Type Severity Reaction Status Date / Time No Known Allergies Allergy Verified 04/01/24 19:23 Review of Systems ROS Statement: Those systems with pertinent positive or pertinent negative responses have been documented in the HPI. ROS Other: All systems not noted in ROS Statement are negative. Past Medical History Past Medical History: COPD History of Any Multi-Drug Resistant Organisms: None Reported Past Surgical History: No Surgical Hx Reported Additional Past Anesthesia/Blood Transfusion Reaction / Comment(s): No Hx of transfusion Past Psychological History: No Psychological Hx Reported Smoking Status: Current every day smoker Past Alcohol Use History: Rare Past Drug Use History: None Reported General Exam Limitations: no limitations General appearance: alert, anxious Head exam: Present: atraumatic Eye exam: Present: normal appearance, PERRL, EOMI ENT exam: Present: mucous membranes moist Neck exam: Present: other (Trachea is in midline) Respiratory exam: Present: normal lung sounds bilaterally, other (Patient is hyperventilating). Absent: wheezes, rales, rhonchi, stridor, chest wall tenderness Cardiovascular Exam: Present: regular rate, normal rhythm, normal heart sounds, other (Normal radial pulses bilaterally) GI/Abdominal exam: Present: soft. Absent: distended, tenderness, guarding Extremities exam: Present: other (Negative Homans' sign bilaterally). Absent: tenderness, pedal edema, calf tenderness Neurological exam: Present: alert, oriented X3. Absent: motor sensory deficit Psychiatric exam: Present: anxious Skin exam: Present: warm, dry, intact, normal color Course Vital Signs 04/01/24 04/01/24 19:21 22:00 Temperature 98.7 F Pulse Rate 100 65 Respiratory 28 H 21 Rate Blood Pressure 142/87 116/74 O2 Sat by Pulse 99 97 Oximetry - Reevaluation(s) Reevaluation #1: 04/01/24 22:36 Patient is now breathing comfortably, and he states that his dyspnea has improved and he is feeling much better now. Patient has a normal room air oxygen saturation at this time. Given his reported dyspnea, tachypnea, elevated D-dimer and inability to rule out pulmonary embolism via CT angio chest at this time due to his elevated creatinine level, will initiate heparin anticoagulation therapy at this time pending VQ scan, which has been ordered. Patient agrees with this plan. Patient is aware of his test results, and he agrees with hospital admission at this time. 04/01/24 22:41 Case, H&P, test results and ED management thus far were discussed with [employer] Sylvia Castellanos. She accepts hospital admission. She has no further recommendations at this time. EKG Findings - EKG Comments: EKG Findings:: ED physician interpretation (interpreted by me): Normal sinus rhythm, no ectopy, ventricular rate of 96 bpm, normal [place] and QRS intervals, normal QT interval, normal axis, nonspecific ST and T wave abnormality, no ST elevation Medical Decision Making - Medical Decision Making Was pt. sent in by a medical professional or institution ([facility] Contreras, [facility], urgent c are, hospital, or [facility]...) When possible be specific @ -No Did you speak to anyone other than the patient for history (EMS, parent, family, police, friend...)? What history was obtained from this source @ -No Did you review nursing and triage notes (agree or disagree)? Why? @ -I reviewed and agree with nursing and triage notes Were old charts reviewed (outside hosp., previous admission, EMS record, old EKG, old radiological studies, urgent care reports/EKG's, [facility] records)? Report findings @ -No old charts were reviewed Differential Diagnosis (chest pain, altered mental status, abdominal pain women, abdominal pain men, vaginal bleeding, weakness, fever, dyspnea, syncope, headache, dizziness, GI bleed, back pain, seizure, CVA, palpatations, mental health, musculoskeletal)? @ -Differential Dyspnea: Coronary syndrome, arrhythmia, tamponade, asthma, COPD, pulmonary embolism, pneumonia, pneumothorax, pleural effusion, anxiety, panic disorder, anemia, neuromuscular, this is not meant to be an all-inclusive list. EKG interpreted by me (3pts min.). @ -As above X-rays interpreted by me (1pt min.). @ -Chest x-ray was reviewed myself and shows no acute cardiopulmonary abnormality. I agree with the radiologist's interpretation as above. CT interpreted by me (1pt min.). @ -None done U/S interpreted by me (1pt. min.). @ -None done What testing was considered but not performed or refused? (CT, X-rays, U/S, labs)? Why? @ -None What meds were considered but not given or refused? Why? @ -None Did you discuss the management of the patient with other professionals (professionals i.e. JANET Contreras, [employer], lab, RT, psych nurse, social organization professor, mold inspector, teacher, senior escrow officer, behavioral health case manager)? Give summary @ -As above. Was smoking cessation discussed for >3mins.? @ -No Was critical care preformed (if so, how long)? @ -No Were there social determinants of health that impacted care today? How? (Homelessness, low income, unemployed, alcoholism, drug addiction, transp ortation, low edu. Level, literacy, decrease access to med. care, snf, rehab)? @ -No Was there de-escalation of care discussed even if they declined (Discuss DNR or withdrawal of care, Hospice)? DNR status @ -No What co-morbidities impacted this encounter? (DM, HTN, Smoking, COPD, CAD, Cancer, CVA, ARF, Chemo, Hep., AIDS, mental health diagnosis, sleep apnea, morbid obesity)? @ -None Was patient admitted / discharged? Hospital course, mention meds given and route, prescriptions, significant lab abnormalities, going to OR and other pertinent info. @ -Patient's tachypnea/hyperventilation and dyspnea have improved with IV Ativan treatment in the ED. Patient is now breathing comfortably with a normal room air oxygen saturation. Patient's chest x-ray is fairly unremarkable. Patient's D-dimer is again elevated, but due to his elevated creatinine level, cannot obtain CT angio chest at this time to rule out PE. As such, the patient has been started on a heparin IV drip and a VQ scan has been ordered. Patient's lactic acid level is also noted to be quite elevated, although his pH is normal on VBG. Patient is not on metformin per his medication list. Patient's salicylate level and alcohol level are within normal limits. Patient is afebrile and I do not suspect an infectious etiology. I am uncertain of the etiology of the patient's lactic acidosis, but will continue to follow. Will admit the patient to the hospital for further management and evaluation. [employer] Sylvia Castellanos has accepted hospital admission. Patient agrees with this plan. Undiagnosed new problem with uncertain prognosis? @ -No Drug Therapy requiring intensive monitoring for toxicity (Heparin, Nitro, Ins ulin, Cardizem)? @ -No Were any procedures done? @ -No Diagnosis/symptom? @ -Dyspnea Acute, or Chronic, or Acute on Chronic? @ -Acute Uncomplicated (without systemic symptoms) or Complicated (systemic symptoms)? @ -Default Side effects of treatment? @ -No Exacerbation, Progression, or Severe Exacerbation? @ -No Poses a threat to life or bodily function? How? (Chest pain, USA, PA, pneumonia, PE, COPD, DKA, ARF, appy, cholecystitis, CVA, Diverticulitis, Homicidal, Suicidal, threat to staff... and all critical care pts) @ -No Diagnosis/symptom? @ -Renal insufficiency Acute, or Chronic, or Acute on Chronic? @ -Acute on chronic Uncomplicated (without systemic symptoms) or Complicated (systemic symptoms)? @ -Default Side effects of treatment? @ -None Exacerbation, Progression, or Severe Exacerbation] @ -No Poses a threat to life or bodily function? @ -No Diagnosis/symptom? @ -Lactic acidosis Acute, or Chronic, or Acute on Chronic? @ -Acute Uncomplicated (without systemic symptoms) or Complicated (systemic symptoms)? @ -Default Side effects of treatment? @ -None Exacerbation, Progression, or Severe Exacerbation] @ -No Poses a threat to life or bodily function? @ -Possible Diagnosis/symptom? @ -Anxiety Acute, or Chronic, or Acute on Chronic? @ -Acute Uncomplicated (without systemic symptoms) or Complicated (systemic symptoms)? @ -Default Side effects of treatment? @ -None Exacerbation, Progression, or Severe Exacerbation] @ -No Poses a threat to life or bodily function? @ -No - Lab Data Result diagrams: 04/01/24 20:00 04/01/24 20:00 Lab Results 04/01/24 04/01/24 04/01/24 Range/Units 20:00 20:00 20:00 WBC 16.5 H (3.8-10.6) k/uL RBC 5.13 (4.30-5.90) m/uL Hgb 15.9 (13.0-17.5) gm/dL Hct 48.4 (39.0-53.0) % MCV 94.4 (80.0-100.0) fL MCH 30.9 (25.0-35.0) pg MCHC 32.8 (31.0-37.0) g/dL RDW 13.0 (11.5-15.5) % Plt Count 247 (150-450) k/uL MPV 7.3 Neutrophils % 87 % Lymphocytes % 7 % Monocytes % 6 % Eosinophils % 0 % Basophils % 0 % Neutrophils # 14.3 H (1.3-7.7) k/uL Lymphocytes # 1.1 (1.0-4.8) k/uL Monocytes # 0.9 (0-1.0) k/uL Eosinophils # 0.1 (0-0.7) k/uL Basophils # 0.0 (0-0.2) k/uL PT 10.7 (10.0-12.5) sec INR 1.0 (<1.2) APTT 20.7 L (22.0-30.0) sec D-Dimer 1.53 H (<0.60) mg/L FEU VBG pH (7.31-7.41) VBG pCO2 (37-51) mmHg VBG HCO3 (24-28) mmol/L Carbon Monoxide, Quant (<10.0) % Sodium 142 (137-145) mmol/L Potassium 5.5 H (3.5-5.1) mmol/L Chloride 112 H (98-107) mmol/L Carbon Dioxide 13 L (22-30) mmol/L Anion Gap 17 mmol/L BUN 39 H (9-20) mg/dL Creatinine 2.49 H (0.66-1.25) mg/dL Est GFR (CKD-EPI)AfAm 31 (>60 ml/min/1.73 sqM) Est GFR (CKD-EPI)NonAf 27 (>60 ml/min/1.73 sqM) Glucose 136 H (74-99) mg/dL Plasma Lactic Acid Dax (0.7-2.0) mmol/L Calcium 10.5 H (8.4-10.2) mg/dL Total Bilirubin 2.2 H (0.2-1.3) mg/dL AST 37 (17-59) U/L ALT 33 (4-49) U/L Alkaline Phosphatase 74 (38-126) U/L Troponin I (0.000-0.034) ng/mL NT-Pro-B Natriuret Pep 338 pg/mL Total Protein 7.2 (6.3-8.2) g/dL Albumin 4.7 (3.5-5.0) g/dL Urine Color Urine Appearance (Clear) Urine pH (5.0-8.0) Ur Specific [place] (1.001-1.035) Urine Protein (Negative) Urine Glucose (UA) (Negative) Urine Ketones (Negative) Urine Blood (Negative) Urine Nitrite (Negative) Urine Bilirubin (Negative) Urine Urobilinogen (<2.0) mg/dL Ur Leukocyte Esterase (Negative) Urine RBC (0-5) /hpf Urine WBC (0-5) /hpf Ur Squamous Epith Cells (0-4) /hpf Urine Bacteria (None) /hpf Urine Mucus (None) /hpf Salicylates mg/dL Urine Opiates Screen (NotDetected) Ur Oxycodone Screen (NotDetected) Urine Methadone Screen (NotDetected) Ur Barbiturates Screen (NotDetected) U Tricyclic Antidepress (NotDetected) Ur Phencyclidine Scrn (NotDetected) Ur Amphetamines Screen (NotDetected) U Methamphetamines Scrn (NotDetected) U Benzodiazepines Scrn (NotDetected) Urine Cocaine Screen (NotDetected) U Marijuana (THC) Screen (NotDetected) Serum Alcohol mg/dL 04/01/24 04/01/24 04/01/24 Range/Units 20:00 20:00 21:11 WBC (3.8-10.6) k/uL RBC (4.30-5.90) m/uL Hgb (13.0-17.5) gm/dL Hct (39.0-53.0) % MCV (80.0-100.0) fL MCH (25.0-35.0) pg MCHC (31.0-37.0) g/dL RDW (11.5-15.5) % Plt Count (150-450) k/uL MPV Neutrophils % % Lymphocytes % % Monocytes % % Eosinophils % % Basophils % % Neutrophils # (1.3-7.7) k/uL Lymphocytes # (1.0-4.8) k/uL Monocytes # (0-1.0) k/uL Eosinophils # (0-0.7) k/uL Basophils # (0-0.2) k/uL PT (10.0-12.5) sec INR (<1.2) APTT (22.0-30.0) sec D-Dimer (<0.60) mg/L FEU VBG pH (7.31-7.41) VBG pCO2 (37-51) mmHg VBG HCO3 (24-28) mmol/L Carbon Monoxide, Quant (<10.0) % Sodium (137-145) mmol/L Potassium (3.5-5.1) mmol/L Chloride (98-107) mmol/L Carbon Dioxide (22-30) mmol/L Anion Gap mmol/L BUN (9-20) mg/dL Creatinine (0.66-1.25) mg/dL Est GFR (CKD-EPI)AfAm (>60 ml/min/1.73 sqM) Est GFR (CKD-EPI)NonAf (>60 ml/min/1.73 sqM) Glucose (74-99) mg/dL Plasma Lactic Acid Dax 6.1 H* (0.7-2.0) mmol/L Calcium (8.4-10.2) mg/dL Total Bilirubin (0.2-1.3) mg/dL AST (17-59) U/L ALT (4-49) U/L Alkaline Phosphatase (38-126) U/L Troponin I <0.012 (0.000-0.034) ng/mL NT-Pro-B Natriuret Pep pg/mL Total Protein (6.3-8.2) g/dL Albumin (3.5-5.0) g/dL Urine Color Urine Appearance (Clear) Urine pH (5.0-8.0) Ur Specific [place] (1.001-1.035) Urine Protein (Negative) Urine Glucose (UA) (Negative) Urine Ketones (Negative) Urine Blood (Negative) Urine Nitrite (Negative) Urine Bilirubin (Negative) Urine Urobilinogen (<2.0) mg/dL Ur Leukocyte Esterase (Negative) Urine RBC (0-5) /hpf Urine WBC (0-5) /hpf Ur Squamous Epith Cells (0-4) /hpf Urine Bacteria (None) /hpf Urine Mucus (None) /hpf Salicylates <1.0 mg/dL Urine Opiates Screen (NotDetected) Ur Oxycodone Screen (NotDetected) Urine Methadone Screen (NotDetected) Ur Barbiturates Screen (NotDetected) U Tricyclic Antidepress (NotDetected) Ur Phencyclidine Scrn (NotDetected) Ur Amphetamines Screen (NotDetected) U Methamphetamines Scrn (NotDetected) U Benzodiazepines Scrn (NotDetected) Urine Cocaine Screen (NotDetected) U Marijuana (THC) Screen (NotDetected) Serum Alcohol mg/dL 04/01/24 04/01/24 04/01/24 Range/Units 21:29 21:29 21:29 WBC (3.8-10.6) k/uL RBC (4.30-5.90) m/uL Hgb (13.0-17.5) gm/dL Hct (39.0-53.0) % MCV (80.0-100.0) fL MCH (25.0-35.0) pg MCHC (31.0-37.0) g/dL RDW (11.5-15.5) % Plt Count (150-450) k/uL MPV Neutrophils % % Lymphocytes % % Monocytes % % Eosinophils % % Basophils % % Neutrophils # (1.3-7.7) k/uL Lymphocytes # (1.0-4.8) k/uL Monocytes # (0-1.0) k/uL Eosinophils # (0-0.7) k/uL Basophils # (0-0.2) k/uL PT (10.0-12.5) sec INR (<1.2) APTT (22.0-30.0) sec D-Dimer (<0.60) mg/L FEU VBG pH 7.40 (7.31-7.41) VBG pCO2 33 L (37-51) mmHg VBG HCO3 21 L (24-28) mmol/L Carbon Monoxide, Quant 1.6 (<10.0) % Sodium (137-145) mmol/L Potassium (3.5-5.1) mmol/L Chloride (98-107) mmol/L Carbon Dioxide (22-30) mmol/L Anion Gap mmol/L BUN (9-20) mg/dL Creatinine (0.66-1.25) mg/dL Est GFR (CKD-EPI)AfAm (>60 ml/min/1.73 sqM) Est GFR (CKD-EPI)NonAf (>60 ml/min/1.73 sqM) Glucose (74-99) mg/dL Plasma Lactic Acid Dax (0.7-2.0) mmol/L Calcium (8.4-10.2) mg/dL Total Bilirubin (0.2-1.3) mg/dL AST (17-59) U/L ALT (4-49) U/L Alkaline Phosphatase (38-126) U/L Troponin I (0.000-0.034) ng/mL NT-Pro-B Natriuret Pep pg/mL Total Protein (6.3-8.2) g/dL Albumin (3.5-5.0) g/dL Urine Color Urine Appearance (Clear) Urine pH (5.0-8.0) Ur Specific [place] (1.001-1.035) Urine Protein (Negative) Urine Glucose (UA) (Negative) Urine Ketones (Negative) Urine Blood (Negative) Urine Nitrite (Negative) Urine Bilirubin (Negative) Urine Urobilinogen (<2.0) mg/dL Ur Leukocyte Esterase (Negative) Urine RBC (0-5) /hpf Urine WBC (0-5) /hpf Ur Squamous Epith Cells (0-4) /hpf Urine Bacteria (None) /hpf Urine Mucus (None) /hpf Salicylates mg/dL Urine Opiates Screen (NotDetected) Ur Oxycodone Screen (NotDetected) Urine Methadone Screen (NotDetected) Ur Barbiturates Screen (NotDetected) U Tricyclic Antidepress (NotDetected) Ur Phencyclidine Scrn (NotDetected) Ur Amphetamines Screen (NotDetected) U Methamphetamines Scrn (NotDetected) U Benzodiazepines Scrn (NotDetected) Urine Cocaine Screen (NotDetected) U Marijuana (THC) Screen (NotDetected) Serum Alcohol <10 mg/dL 04/01/24 04/01/24 Range/Units 21:43 21:43 WBC (3.8-10.6) k/uL RBC (4.30-5.90) m/uL Hgb (13.0-17.5) gm/dL Hct (39.0-53.0) % MCV (80.0-100.0) fL MCH (25.0-35.0) pg MCHC (31.0-37.0) g/dL RDW (11.5-15.5) % Plt Count (150-450) k/uL MPV Neutrophils % % Lymphocytes % % Monocytes % % Eosinophils % % Basophils % % Neutrophils # (1.3-7.7) k/uL Lymphocytes # (1.0-4.8) k/uL Monocytes # (0-1.0) k/uL Eosinophils # (0-0.7) k/uL Basophils # (0-0.2) k/uL PT (10.0-12.5) sec INR (<1.2) APTT (22.0-30.0) sec D-Dimer (<0.60) mg/L FEU VBG pH (7.31-7.41) VBG pCO2 (37-51) mmHg VBG HCO3 (24-28) mmol/L Carbon Monoxide, Quant (<10.0) % Sodium (137-145) mmol/L Potassium (3.5-5.1) mmol/L Chloride (98-107) mmol/L Carbon Dioxide (22-30) mmol/L Anion Gap mmol/L BUN (9-20) mg/dL Creatinine (0.66-1.25) mg/dL Est GFR (CKD-EPI)AfAm (>60 ml/min/1.73 sqM) Est GFR (CKD-EPI)NonAf (>60 ml/min/1.73 sqM) Glucose (74-99) mg/dL Plasma Lactic Acid Dax (0.7-2.0) mmol/L Calcium (8.4-10.2) mg/dL Total Bilirubin (0.2-1.3) mg/dL AST (17-59) U/L ALT (4-49) U/L Alkaline Phosphatase (38-126) U/L Troponin I (0.000-0.034) ng/mL NT-Pro-B Natriuret Pep pg/mL Total Protein (6.3-8.2) g/dL Albumin (3.5-5.0) g/dL Urine Color Light Yellow Urine Appearance Clear (Clear) Urine pH 5.5 (5.0-8.0) Ur Specific [place] 1.018 (1.001-1.035) Urine Protein Negative (Negative) Urine Glucose (UA) Negative (Negative) Urine Ketones Negative (Negative) Urine Blood Small H (Negative) Urine Nitrite Negative (Negative) Urine Bilirubin Negative (Negative) Urine Urobilinogen <2.0 (<2.0) mg/dL Ur Leukocyte Esterase Negative (Negative) Urine RBC <1 (0-5) /hpf Urine WBC <1 (0-5) /hpf Ur Squamous Epith Cells <1 (0-4) /hpf Urine Bacteria Rare H (None) /hpf Urine Mucus Rare H (None) /hpf Salicylates mg/dL Urine Opiates Screen Not Detected (NotDetected) Ur Oxycodone Screen Not Detected (NotDetected) Urine Methadone Screen Not Detected (NotDetected) Ur Barbiturates Screen Not Detected (NotDetected) U Tricyclic Antidepress Not Detected (NotDetected) Ur Phencyclidine Scrn Not Detected (NotDetected) Ur Amphetamines Screen Not Detected (NotDetected) U Methamphetamines Scrn Not Detected (NotDetected) U Benzodiazepines Scrn Not Detected (NotDetected) Urine Cocaine Screen Not Detected (NotDetected) U Marijuana (THC) Screen Detected H (NotDetected) Serum Alcohol mg/dL - Radiology Data Chest x-ray: No acute cardiopulmonary disease/process. Disposition Clinical Impression: Dyspnea, Anxiety, Renal insufficiency, Elevated lactic acid level Disposition: ADMITTED IP TO THIS [facility] Condition: Stable Is patient prescribed a controlled substance at d/c from ED?: No Referrals: None,Stated [Primary Care Provider] - 1-2 days Time of Disposition: 22:57
[2024-04-01] MEDS: LORazepam 2 MG/ML INJ IV STA (20:05)
[2024-04-01 20:17] LABS: Basophils % (A) 0 %; Eosinophils # (A) 0.1 k/uL (0-0.7); Eosinophils % (A) 0 %; HCT 48.4 % (39.0-53.0); HGB 15.9 gm/dL (13.0-17.5); Lymphocytes # (A) 1.1 k/uL (1.0-4.8); Lymphocytes % (A) 7 %; MCH 30.9 pg (25.0-35.0); MCHC 32.8 g/dL (31.0-37.0); MCV 94.4 fL (80.0-100.0); Mean Platelet Volume 7.3; Monocytes # (A) 0.9 k/uL (0-1.0); Monocytes % (A) 6 %; Neutrophils # (A) 14.3 k/uL (1.3-7.7); Neutrophils % (A) 87 %; Platelet Count 247 k/uL (150-450); RBC 5.13 m/uL (4.30-5.90); WBC 16.5 k/uL (3.8-10.6)
--- NOTE | 2024-04-01 20:34 | XR ---
EXAMINATION TYPE: XR chest 2V DATE OF EXAM: 04/01/2024 8:17 PM CLINICAL INDICATION: Male, 63 years old with history of difficulty breathing; [facility] COMPARISON: Chest radiographs from TECHNIQUE: XR chest 2V Frontal view of the chest. FINDINGS: Lungs/Pleura: There is no evidence of pleural effusion, focal consolidation, or pneumothorax. Pulmonary vascularity: Unremarkable. Heart/mediastinum: Cardiomediastinal silhouette is unremarkable. Musculoskeletal: No acute osseous pathology. Other findings: None IMPRESSION: No acute cardiopulmonary disease/process. [facility], , 04/01/2024 8:32 PM
[2024-04-01 20:44] LABS: AST 37 U/L (17-59); African American GFR (CKD) 31 (>60 ml/min/1.73 sqM); Albumin 4.7 g/dL (3.5-5.0); Alkaline Phosphatase 74 U/L (38-126); Anion Gap 17 mmol/L; Blood Urea Nitrogen 39 mg/dL (9-20); Calcium 10.5 mg/dL (8.4-10.2); Carbon Dioxide 13 mmol/L (22-30); Chloride 112 mmol/L (98-107); Glucose 136 mg/dL (74-99); Non-African American GFR(CKD) 27 (>60 ml/min/1.73 sqM); Potassium 5.5 mmol/L (3.5-5.1); Sodium 142 mmol/L (137-145); Total Bilirubin 2.2 mg/dL (0.2-1.3); Total Protein 7.2 g/dL (6.3-8.2)
[2024-04-01 20:53] LABS: NT-Pro-B-Type Natriuretic Pept 338 pg/mL
[2024-04-01 21:02] LABS: ALT 33 U/L (4-49)
[2024-04-01 21:08] LABS: Prothrombin Time 10.7 sec (10.0-12.5)
[2024-04-01 21:24] LABS: Partial Thromboplastin Time 20.7 sec (22.0-30.0)
[2024-04-01] MEDS: SODIUM CHLORIDE 0.9% 1,000 ML IV ONE (21:36)
[2024-04-01 21:47] LABS: VBG PH 7.4 (7.31-7.41)
[2024-04-01 22:09] LABS: Appearance,Urine Clear (Clear); Bacteria,Urine Rare /hpf; Bilirubin,Urine Negative (Negative); Blood,Urine Small (Negative); Color,Urine Light Yellow; Glucose,Urine (UA) Negative (Negative); Ketones,Urine Negative (Negative); Leukocyte Esterase,Urine Negative (Negative); Mucus,Urine Rare /hpf; Nitrite,Urine Negative (Negative); PH, Urine 5.5 (5.0-8.0); Protein,Urine Negative (Negative); RBC,Urine <1 /hpf (0-5); Specific Gravity,Urine 1.018 (1.001-1.035); Squamous Epithelial Cell,Urine <1 /hpf (0-4); Urobilinogen,Urine <2.0 mg/dL (<2.0); WBC,Urine <1 /hpf (0-5)
[2024-04-01 22:16] LABS: Amphetamine Screen,Urine Not Detected (NotDetected); Barbiturate Screen,Urine Not Detected (NotDetected); Benzodiazepines Screen,Urine Not Detected (NotDetected); Cocaine Screen,Urine Not Detected (NotDetected); Methadone Screen, Urine Not Detected (NotDetected); Opiate Screen,Urine Not Detected (NotDetected); Oxycodone Screen, Urine Not Detected (NotDetected); Phencyclidine Screen,Urine Not Detected (NotDetected); Tricyclic Antidepressant,Urine Not Detected (NotDetected); Urn Cannabinoid Scrn Detected (NotDetected)
[2024-04-01 22:26] LABS: Salicylate <1.0 mg/dL
[2024-04-01] MEDS ORDERED: HEPARIN SODIUM 1,000 UN/ML (10ML VL) IV PRN (22:40)
[2024-04-01] MEDS ORDERED: NALOXONE 0.4 MG/ML 1 ML VIAL IV PRN (22:57)
[2024-04-01] MEDS: HEPARIN SOD,PORK IN 0.45% NACL 25,000 UNIT in 0.45% NACL 1 250ML.BAG IV SCH (23:37)
[2024-04-01] MEDS: HEPARIN SODIUM 1,000 UN/ML (10ML VL) IV ONE (23:38)
[2024-04-01] MEDS: SODIUM CHLORIDE 0.9% 1,000 ML IV SCH (23:39)
[2024-04-02 07:09] LABS: Basophils % (A) 0 %; Eosinophils % (A) 0 %; HGB 13.9 gm/dL (13.0-17.5); Lymphocytes # (A) 2.1 k/uL (1.0-4.8); Lymphocytes % (A) 14 %; MCH 31.3 pg (25.0-35.0); MCHC 33.9 g/dL (31.0-37.0); MCV 92.3 fL (80.0-100.0); Mean Platelet Volume 8.2; Monocytes # (A) 1.6 k/uL (0-1.0); Monocytes % (A) 11 %; Neutrophils # (A) 10.8 k/uL (1.3-7.7); Neutrophils % (A) 74 %; Platelet Count 199 k/uL (150-450); RBC 4.44 m/uL (4.30-5.90); RDW 13.6 % (11.5-15.5); WBC 14.6 k/uL (3.8-10.6)
[2024-04-02 07:38] LABS: ALT 20 U/L (4-49); AST 44 U/L (17-59); African American GFR (CKD) 36 (>60 ml/min/1.73 sqM); Albumin 3.5 g/dL (3.5-5.0); Alkaline Phosphatase 59 U/L (38-126); Anion Gap 6 mmol/L; Blood Urea Nitrogen 39 mg/dL (9-20); Carbon Dioxide 20 mmol/L (22-30); Chloride 116 mmol/L (98-107); Glucose 116 mg/dL (74-99); Non-African American GFR(CKD) 31 (>60 ml/min/1.73 sqM); Potassium 4.7 mmol/L (3.5-5.1); Sodium 142 mmol/L (137-145); Total Protein 5.8 g/dL (6.3-8.2)
--- NOTE | 2024-04-02 08:53 | NM ---
EXAMINATION TYPE: NM pul vent and perfuse DATE OF EXAM: 04/02/2024 CLINICAL INDICATION: Male, 63 years old with history of Dyspnea, elevated D-dimer, high creatinine; COMPARISON: NONE TECHNIQUE: Utilizing inhalation of 40.1 mCi Tc 99m DTPA aerosol and intravenous injection of 5.1 mCi of Tc 99m MAA, ventilation and perfusion images are acquired post injection in multiple projections. FINDINGS: Normal radiotracer distribution is noted in the lungs. There is no evidence of mismatched defects. IMPRESSION: Low probability for pulmonary embolism. [facility], Workstation: JONE 04/02/2024 8:51 AM
[2024-04-02] MEDS ORDERED: guaiFENesin-Coden 100-10MG/5ML 10 ML CUP PO PRN (10:36)
[2024-04-02] MEDS: METOPROLOL SUCCINATE (ER) 25 MG TAB.ER.24H PO SCH (10:52)
[2024-04-02] MEDS: guaiFENesin 600 MG TABLET.ER PO SCH (10:52)
[2024-04-02] MEDS: methylPREDNISolone SOD SUCCI 40 MG/ML 1 ML VIAL IVP SCH (10:52)
[2024-04-02] MEDS ORDERED: methylPREDNISolone SOD SUCCIN 40 MG in SODIUM CHLORIDE 0.9% 100 ML IVPB SCH (11:00)
--- NOTE | 2024-04-02 12:50 | P.HPIM ---
History of Present Illness H&P Date: 04/02/24 History of present illness; patient is a 63-year-old gentleman with past medical history significant for COPD, hyperlipidemia, hypertension presented to the ER because of worsening shortness of breath. Patient stated he was all right 2 days back and he started developing shortness of breath. Shortness of breath was present on rest as on exertion. Patient was seen in the ER, and was discharged on breathing treatments. Patient denies any chest pain. There is no complaint of orthopnea or PND. There is no complaint of swelling of feet. Patient is active smoker and continues to smoke and has been diagnosed with COPD. Because of this worsening shortness of breath, patient was sent to the ER Initial lab work done in the ER showed WBC 16.5, hemoglobin 15.9, platelet count 247, D-dimer 1.53 sodium 142, potassium 5.5, carbon psyched 13, anion gap 17, BUN 39, creatinine 2.49, lactate 6.1, bilirubin 2.2, calcium 10.5 troponin 0.012 EKG done in the ER showed heart rate of 96, no ST segment elevation or depression seen, no T-wave inversions seen. Chest x-ray done in the ER showed no acute cardiopulmonary process Patient admitted to internal medicine service REVIEW OF SYSTEMS: CONSTITUTIONAL: No fever, no malaise, no fatigue. HEENT: No recent visual problems or hearing problems. Denied any sore throat. CARDIOVASCULAR: As mentioned above PULMONARY: As mentioned above GASTROINTESTINAL: No diarrhea, no nausea, no vomiting, no abdominal pain. NEUROLOGICAL: No headaches, no weakness, no numbness. HEMATOLOGICAL: Denies any bleeding or petechiae. GENITOURINARY: Denies any burning micturition, frequency, or urgency. MUSCULOSKELETAL/RHEUMATOLOGICAL: Denies any joint pain, swelling, or any muscle pain. ENDOCRINE: Denies any polyuria or polydipsia. The rest of the 14-point review of systems is negative. PHYSICAL EXAMINATION: GENERAL: The patient is alert and oriented x3, not in any acute distress. Well developed, well nourished. HEENT: Pupils are round and equally reacting to light. EOMI. No scleral icterus. No conjunctival pallor. Normocephalic, atraumatic. No pharyngeal erythema. No thyromegaly. CARDIOVASCULAR: S1 and S2 present. No murmurs, rubs, or gallops. PULMONARY: Coarse breath sound bilaterally, expiratory wheeze audible ABDOMEN: Soft, nontender, nondistended, normoactive bowel sounds. No palpable organomegaly. MUSCULOSKELETAL: No joint swelling or deformity. EXTREMITIES: No cyanosis, clubbing, or pedal edema. NEUROLOGICAL: Gross neurological examination did not reveal any focal deficits. SKIN: No rashes. Assessment and plan Shortness of breath Acute COPD exacerbation Elevated D-dimer Hyperkalemia Metabolic acidosis Acute kidney injury Hypercalcemia Hypertension Hyperlipidemia Monitor vital signs Monitor CBC Monitor CMP Continue telemetry monitoring Trend troponin Ordered 2D echo Ordered ultrasound lower extremities Ordered breathing treatments Ordered IV Solu-Medrol Ordered pharmacy dose heparin Nephrotoxic agents Hold losartan for now Continue IV fluids Consult pulmonary Consult nephrology Labs and medication were reviewed.. Continue same treatment. Continue with symptomatic treatment. Resume home medication. Monitor labs and vitals. DVT and GI prophylaxis. Further recommendations as per clinical course of the patie nt Dictation was produced using [employer] dictation software. please excuse any grammatical, word or spelling errors. Past Medical History Past Medical History: COPD History of Any Multi-Drug Resistant Organisms: None Reported Past Surgical History: No Surgical Hx Reported Additional Past Anesthesia/Blood Transfusion Reaction / Comment(s): No Hx of transfusion Past Psychological History: No Psychological Hx Reported Smoking Status: Current every day smoker Past Alcohol Use History: Rare Past Drug Use History: None Reported Medications and Allergies Home Medications Medication Instructions Recorded Confirmed Type Atorvastatin [Lipitor] 80 mg PO DAILY #90 tab 01/31/21 04/02/24 Rx Losartan [Cozaar] 25 mg PO DAILY #90 tab 02/01/21 04/02/24 Rx predniSONE 60 mg PO DAILY #30 tab 04/01/24 04/02/24 Rx Albuterol Inhaler [Ventolin Hfa 2 puff INHALATION RT-Q4H PRN 04/02/24 04/02/24 History Inhaler] Azithromycin [Zithromax] See Taper PO DIRECTED 04/02/24 04/02/24 History Metoprolol Succinate [Metoprolol 25 mg PO DAILY 04/02/24 04/02/24 History Succinate ER] Allergies Allergy/AdvReac Type Severity Reaction Status Date / Time No Known Allergies Allergy Verified 04/02/24 09:08 Physical Exam Vitals: Vital Signs Temp Pulse Resp BP Pulse Ox 04/02/24 06:00 60 18 118/60 98 04/02/24 05:00 71 18 130/80 97 04/02/24 02:00 75 18 112/77 97 04/01/24 23:00 85 18 102/62 98 04/01/24 22:00 65 21 116/74 97 04/01/24 19:21 98.7 F 100 28 H 142/87 99 Intake and Output 04/01/24 04/02/24 04/02/24 22:59 06:59 14:59 Intake Total 136.428 Balance 136.428 Intake: Intake, IV Titration 136.428 Amount Heparin Sod,Pork in 0.45% 136.428 NaCl 25,000 unit In 0.45 % NaCl 1 250ml.bag @ 18 UNITS/KG/HR 14.696 mls/hr IV .Q17H1M [facility] Rx#: [id number] Other: Weight 81.647 kg Results CBC & Chem 7: 04/02/24 05:58 04/02/24 05:58 Labs: Abnormal Lab Results - Last 24 Hours (Table) 04/01/24 04/01/24 04/01/24 Range/Units 20:00 20:00 20:00 WBC 16.5 H (3.8-10.6) k/uL Neutrophils # 14.3 H (1.3-7.7) k/uL Monocytes # (0-1.0) k/uL APTT 20.7 L (22.0-30.0) sec D-Dimer 1.53 H (<0.60) mg/L FEU VBG pCO2 (37-51) mmHg VBG HCO3 (24-28) mmol/L Potassium 5.5 H (3.5-5.1) mmol/L Chloride 112 H (98-107) mmol/L Carbon Dioxide 13 L (22-30) mmol/L BUN 39 H (9-20) mg/dL Creatinine 2.49 H (0.66-1.25) mg/dL Glucose 136 H (74-99) mg/dL Plasma Lactic Acid Dax (0.7-2.0) mmol/L Calcium 10.5 H (8.4-10.2) mg/dL Total Bilirubin 2.2 H (0.2-1.3) mg/dL Total Protein (6.3-8.2) g/dL Urine Blood (Negative) Urine Bacteria (None) /hpf Urine Mucus (None) /hpf U Marijuana (THC) Screen (NotDetected) 04/01/24 04/01/24 04/01/24 Range/Units 20:00 21:29 21:43 WBC (3.8-10.6) k/uL Neutrophils # (1.3-7.7) k/uL Monocytes # (0-1.0) k/uL APTT (22.0-30.0) sec D-Dimer (<0.60) mg/L FEU VBG pCO2 33 L (37-51) mmHg VBG HCO3 21 L (24-28) mmol/L Potassium (3.5-5.1) mmol/L Chloride (98-107) mmol/L Carbon Dioxide (22-30) mmol/L BUN (9-20) mg/dL Creatinine (0.66-1.25) mg/dL Glucose (74-99) mg/dL Plasma Lactic Acid Dax 6.1 H* (0.7-2.0) mmol/L Calcium (8.4-10.2) mg/dL Total Bilirubin (0.2-1.3) mg/dL Total Protein (6.3-8.2) g/dL Urine Blood Small H (Negative) Urine Bacteria Rare H (None) /hpf Urine Mucus Rare H (None) /hpf U Marijuana (THC) Screen (NotDetected) 04/01/24 04/02/24 04/02/24 Range/Units 21:43 05:58 05:58 WBC 14.6 H (3.8-10.6) k/uL Neutrophils # 10.8 H (1.3-7.7) k/uL Monocytes # 1.6 H (0-1.0) k/uL APTT 135.6 H* (22.0-30.0) sec D-Dimer (<0.60) mg/L FEU VBG pCO2 (37-51) mmHg VBG HCO3 (24-28) mmol/L Potassium (3.5-5.1) mmol/L Chloride (98-107) mmol/L Carbon Dioxide (22-30) mmol/L BUN (9-20) mg/dL Creatinine (0.66-1.25) mg/dL Glucose (74-99) mg/dL Plasma Lactic Acid Dax (0.7-2.0) mmol/L Calcium (8.4-10.2) mg/dL Total Bilirubin (0.2-1.3) mg/dL Total Protein (6.3-8.2) g/dL Urine Blood (Negative) Urine Bacteria (None) /hpf Urine Mucus (None) /hpf U Marijuana (THC) Screen Detected H (NotDetected) 04/02/24 Range/Units 05:58 WBC (3.8-10.6) k/uL Neutrophils # (1.3-7.7) k/uL Monocytes # (0-1.0) k/uL APTT (22.0-30.0) sec D-Dimer (<0.60) mg/L FEU VBG pCO2 (37-51) mmHg VBG HCO3 (24-28) mmol/L Potassium (3.5-5.1) mmol/L Chloride 116 H (98-107) mmol/L Carbon Dioxide 20 L (22-30) mmol/L BUN 39 H (9-20) mg/dL Creatinine 2.18 H (0.66-1.25) mg/dL Glucose 116 H (74-99) mg/dL Plasma Lactic Acid Dax (0.7-2.0) mmol/L Calcium (8.4-10.2) mg/dL Total Bilirubin 2.0 H (0.2-1.3) mg/dL Total Protein 5.8 L (6.3-8.2) g/dL Urine Blood (Negative) Urine Bacteria (None) /hpf Urine Mucus (None) /hpf U Marijuana (THC) Screen (NotDetected)
--- NOTE | 2024-04-02 14:51 | US ---
EXAMINATION TYPE: US kidneys/renal and bladder DATE OF EXAM: 04/02/2024 COMPARISON: US 2020 CLINICAL INDICATION: Male, 63 years old with history of [place]; TECHNIQUE: Grayscale and color Doppler imaging of the bilateral kidneys and urinary bladder: FINDINGS: EXAM MEASUREMENTS: Right Kidney: 9.4 x 5.2 x 4.6 cm Left Kidney: 9.0 x 4.4 x 4.2 cm Right Kidney: multiple cysts with largest measuring 2.0cm, cortical thinning Left Kidney: cortical thinning Bladder: wnl Bilateral Jets seen: yes There is no evidence for hydronephrosis at this point in time. No nephrolithiasis is seen. No idalia s are identified. The urinary bladder is anechoic. Bilateral ureteral jets are seen. IMPRESSION: 1. No evidence for obstructive uropathy. 2. Simple appearing right renal cyst. 3. Cortical thinning bilaterally suggestive of chronic kidney disease. [facility], , 04/02/2024 2:48 PM
--- NOTE | 2024-04-02 14:51 | US ---
EXAMINATION TYPE: US venous doppler duplex LE DATE OF EXAM: 04/02/2024 1:57 PM COMPARISON: NONE CLINICAL INDICATION: Male, 63 years old with history of swelling, elevated d-dimer; TECHNIQUE: The lower extremity deep venous system is examined utilizing real time linear array sonog daquan with graded compression, color doppler sonography, and spectral doppler. SIDE PERFORMED: Bilateral FINDINGS: VESSELS IMAGED: Common Femoral Vein Deep Femoral Vein Greater Saphenous Vein * Femoral Vein Popliteal Vein Small Saphenous Vein * Proximal Calf Veins (* superficial vessels) Right Leg: Appears negative for DVT Left Leg: Appears negative for DVT Grayscale, color doppler, spectral doppler imaging performed of the deep veins of the lower extremiti es. IMPRESSION: 1. No ultrasound evidence for deep venous thrombosis of either lower extremity. [facility], , 04/02/2024 2:49 PM
--- NOTE | 2024-04-02 14:55 | P.CNPUL ---
History of Present Illness Consult date: 04/02/24 Reason for consult: dyspnea History of present illness: 63-year-old male patient, known history of COPD, presented to the hospital because of worsening shortness of breath. The patient is also known to have coronary artery disease, previous inferior wall myocardial infarction back in 2020 secondary to total occlusion of the RCA requiring angioplasty and stenting. He is also known to have chronic kidney disease, stage III. Previous echocar diogram also showed mild impairment of LV function with an EF of around 40 to 45%. Is a chronic smoker. In the emergency, the patient was found to have a white cell count of 14.6, hemoglobin 15.9, a urine drug screen was positive for marijuana and negative for alcohol. Sodium was 142, potassium of 4.7, bicarb of 20, BUN 39 with a creatinine of 2.1. LFTs were normal. The initial lactic acid level was at 6.1 dropped down to 1.7 with fluids. For set of troponin is been negative. Chest x-ray was completed and it showed hyperinflation without any other acute abnormalities and the VQ scan was of a low probability. The patient is currently on 2 L of oxygen by nasal cannula with a pulse ox of 98%. Started on DuoNeb nebulized treatments [id number]. Started on IV Solu-Medrol. He is also on IV fluids with normal saline at 75 cc an hour. Noted the patient came into the Emergency Department 48 hours ago and he was seen for the same problem, diagnosed having COPD exacerbation and the viral screen was negative and the patient was discharged home on a prednisone burst taper and Zithromax. Review of Systems Constitutional: Reports as per HPI Eyes: denies as per HPI, denies blurred vision, denies bulging eye, denies decreased vision, denies diplopia, denies discharge, denies dry eye, denies irritation, denies itching, denies pain, denies photophobia, denies loss of peripheral vision, denies loss of vision, denies tunnel vision/blind spots Ears: deny: decreased hearing, ear discharge, earache, tinnitus Ears, nose, mouth and throat: Reports as per HPI Cardiovascular: Reports as per HPI, Reports no chest pain Respiratory: Reports as per HPI reports worsening shortness of breath. O ccasional cough. Gastrointestinal: Reports as per HPI Genitourinary: Reports as per HPI Musculoskeletal: Reports as per HPI Musculoskeletal: absent: ankle pain, ankle stiffness, ankle swelling, as per HPI, elbow pain, elbow stiffness, elbow swelling, foot pain, foot stiffness, foot swelling, hand pain, hand stiffness, hand swelling, hip pain, hip stiffness, hip swelling, knee pain, knee stiffness, knee swelling, shoulder pain, shoulder stiffness, shoulder swelling, wrist pain, wrist stiffness, wrist swelling Integumentary: Reports as per HPI Neurological: Reports as per HPI Psychiatric: Reports as per HPI Endocrine: Reports as per HPI Hematologic/Lymphatic: Reports as per HPI Allergic/Immunologic: Reports as per HPI Past Medical History Past Medical History: Coronary Artery Disease (CAD), COPD History of Any Multi-Drug Resistant Organisms: None Reported Past Surgical History: No Surgical Hx Reported Additional Past Anesthesia/Blood Transfusion Reaction / Comment(s): No Hx of transfusion Past Psychological History: No Psychological Hx Reported Smoking Status: Current every day smoker Past Alcohol Use History: Rare Past Drug Use History: None Reported Medications and Allergies Home Medications Medication Instructions Recorded Confirmed Type Atorvastatin [Lipitor] 80 mg PO DAILY #90 tab 01/31/21 04/02/24 Rx Losartan [Cozaar] 25 mg PO DAILY #90 tab 02/01/21 04/02/24 Rx predniSONE 60 mg PO DAILY #30 tab 04/01/24 04/02/24 Rx Albuterol Inhaler [Ventolin Hfa 2 puff INHALATION RT-Q4H PRN 04/02/24 04/02/24 History Inhaler] Azithromycin [Zithromax] See Taper PO DIRECTED 04/02/24 04/02/24 History Metoprolol Succinate [Metoprolol 25 mg PO DAILY 04/02/24 04/02/24 History Succinate ER] Allergies Allergy/AdvReac Type Severity Reaction Status Date / Time No Known Allergies Allergy Verified 04/02/24 09:08 Physical Exam Vitals: Vital Signs Temp Pulse Resp BP Pulse Ox 04/02/24 10:30 69 16 125/84 98 04/02/24 06:00 60 18 118/60 98 04/02/24 05:00 71 18 130/80 97 04/02/24 02:00 75 18 112/77 97 04/01/24 23:00 85 18 102/62 98 04/01/24 22:00 65 21 116/74 97 04/01/24 19:21 98.7 F 100 28 H 142/87 99 Intake and Output 04/01/24 04/02/24 04/02/24 22:59 06:59 14:59 Intake Total 136.428 Balance 136.428 Intake: Intake, IV Titration 136.428 Amount Heparin Sod,Pork in 0.45% 136.428 NaCl 25,000 unit In 0.45 % NaCl 1 250ml.bag @ 18 UNITS/KG/HR 14.696 mls/hr IV .Q17H1M [facility] Rx#: [id number] Other: Weight 81.647 kg The patient appeared well nourished and normally developed. Vital signs as documented. Head exam is unremarkable. No scleral icterus or corneal arcus noted. Neck is without jugular venous distension, thyromegaly, or carotid bruits. Carotid upstrokes are brisk bilaterally. Lungs are diminished breath sound bilaterally with scattered expiratory wheezing throughout the lung hawk Cardiac exam reveals the PMI to be normally sized and situated. Rhythm is regular. First and second heart sounds normal. No murmurs, rubs or gallops. Abdominal exam reveals normal bowel sounds, no masses, no organomegaly and no aortic enlargement. Extremities are nonedematous and both femoral and pedal pulses are normal. Examination of the skin revealed no evidence of significant rashes, suspicious appearing nevi or other concerning lesions. Neurologically, the patient is awake and alert and the patient does not have any focal neurological deficit. Cranial nerves are essentially intact. Results - Laboratory Findings CBC and BMP: 04/02/24 05:58 04/02/24 05:58 PT/INR, D-dimer PT 10.7 sec (10.0-12.5) 04/01/24 20:00 INR 1.0 (<1.2) 04/01/24 20:00 D-Dimer 1.53 mg/L FEU (<0.60) H 04/01/24 20:00 Abnormal lab findings: Abnormal Labs 04/01/24 04/01/24 04/01/24 20:00 20:00 20:00 WBC 16.5 H Neutrophils # 14.3 H Monocytes # APTT 20.7 L D-Dimer 1.53 H VBG pCO2 VBG HCO3 Potassium 5.5 H Chloride 112 H Carbon Dioxide 13 L BUN 39 H Creatinine 2.49 H Glucose 136 H Osmolality Plasma Lactic Acid Dax Calcium 10.5 H Total Bilirubin 2.2 H Total Protein Urine Blood Urine Bacteria Urine Mucus U Marijuana (THC) Screen 04/01/24 04/01/24 04/01/24 20:00 21:11 21:29 WBC Neutrophils # Monocytes # APTT D-Dimer VBG pCO2 33 L VBG HCO3 21 L Potassium Chloride Carbon Dioxide BUN Creatinine Glucose Osmolality 307 H Plasma Lactic Acid Dax 6.1 H* Calcium Total Bilirubin Total Protein Urine Blood Urine Bacteria Urine Mucus U Marijuana (THC) Screen 04/01/24 04/01/24 04/02/24 21:43 21:43 05:58 WBC Neutrophils # Monocytes # APTT 135.6 H* D-Dimer VBG pCO2 VBG HCO3 Potassium Chloride Carbon Dioxide BUN Creatinine Glucose Osmolality Plasma Lactic Acid Dax Calcium Total Bilirubin Total Protein Urine Blood Small H Urine Bacteria Rare H Urine Mucus Rare H U Marijuana (THC) Screen Detected H 04/02/24 04/02/24 05:58 05:58 WBC 14.6 H Neutrophils # 10.8 H Monocytes # 1.6 H APTT D-Dimer VBG pCO2 VBG HCO3 Potassium Chloride 116 H Carbon Dioxide 20 L BUN 39 H Creatinine 2.18 H Glucose 116 H Osmolality Plasma Lactic Acid Dax Calcium Total Bilirubin 2.0 H Total Protein 5.8 L Urine Blood Urine Bacteria Urine Mucus U Marijuana (THC) Screen - Diagnostic Findings Chest x-ray: image reviewed Assessment and Plan Plan: Acute exacerbation of COPD with secondary shortness of breath. VQ scan is negative. Doppler of the lower extremity is still pending. Chest x-ray shows hyperinflation without any evidence of airspace disease Acute hypoxic respiratory failure currently on 2 L of oxygen by nasal cannula Shortness of breath secondary to above Coronary artery disease with previous inferior wall DC back in 2020 requiring a ngioplasty and stenting of RCA Chronic stage III kidney disease Hypertension Hyperlipidemia Former smoker and he quit in 2020 Plan Agree on the current treatment. The presentation is likely related to COPD exacerbation Continue bronchodilators Echo BNP is nonelevated outpatient PFT Will follow.
[2024-04-02] MEDS: IPRATROPIUM-ALBUTEROL 3 ML NEB INHALATION PRN (18:09)
[2024-04-02] MEDS: ALPRAZolam 0.5 MG TAB PO PRN (18:34)
[2024-04-02 18:55] VITALS: RESP 16
[2024-04-02] MEDS: SODIUM BICARBONATE TAB 650 MG TAB PO SCH (21:04)
[2024-04-03] MEDS: ATORVASTATIN 80 MG TAB PO SCH (08:19)
[2024-04-03 08:34] LABS: HCT 42.9 % (39.6-50.0); HGB 14.2 g/dL (13.0-17.0); MCH 30.7 pg (27.0-32.0); MCHC 33.1 g/dL (32.0-37.0); MCV 92.9 FL (80.0-97.0); Mean Platelet Volume 9.9 FL (9.5-12.2); NRBC Per 100 WBC 0 X 10*3/uL (0.00-0.01); Platelet Count 203 X 10*3/uL (140-440); RBC 4.62 X 10*6/uL (4.40-5.60); RDW 13.6 % (11.5-14.5); WBC 16.37 X 10*3/uL (4.50-10.00)
[2024-04-03 08:46] LABS: BUN/Creat Ratio 19.74 Ratio (12.00-20.00); Blood Urea Nitrogen 45.4 mg/dL (9.0-27.0); Carbon Dioxide 14.2 mmol/L (21.6-31.8); Chloride 113 mmol/L (96-109); Glucose 141 mg/dL (70-110); Potassium 5.5 mmol/L (3.5-5.5); Sodium 142 mmol/L (135-145)
[2024-04-03 08:47] LABS: ALT 26 U/L (10-49); AST 50 U/L (14-35); Albumin 3.9 g/dL (3.8-4.9); Albumin/Globulin Ratio 1.95 Ratio (1.60-3.17); Alkaline Phosphatase 72 U/L (41-126); Calcium 9.5 mg/dL (8.7-10.3); Total Bilirubin 1.2 mg/dL (0.3-1.2); Total Protein 5.9 g/dL (6.2-8.2)
--- NOTE | 2024-04-03 08:56 | P.NPCON ---
History of Present Illness - Reason for Consult acute renal failure, chronic renal failure - History of Present Illness Reason for consultation: Acute kidney injury on chronic kidney disease History of present illness: Patient is a 63-year-old male seen in renal consultation for acute kidney injury on chronic kidney disease. Patient has chronic kidney disease stage IIIb with prior creatinine in the range of 1.6 in January 2021 and 2.3 in August 2022. Creatinine this admission was as high as 2.49 and is 2.3 today. Patient states he does not follow with nephrology outpatient. Patient states he has not seen a primary care physician for over 5 years. Patient came to the hospital due to worsening shortness of breath going on for the last 2 weeks. Patient states dyspnea progressively got worse and he came to the hospital. VQ scan showed low probability of PE. He denies chest pain. Denies history of diabetes. He does have history of coronary disease with a stent placed few years ago. He denies use of nonsteroidals. Denies family history of renal disease. No gross hematuria or dysuria. Blood pressure fairly stable this admission. Losartan is currently held. Vital signs are stable. General: No acute distress. HEENT: Head exam is unremarkable. LUNGS: No audible rhonchi or wheezes. HEART: Rate and Rhythm are regular. ABDOMEN: Nontender. EXTREMITITES: No edema. Past Medical History Past Medical History: Coronary Artery Disease (CAD), COPD, Myocardial Infarction ([place]) Last Myocardial Infarction Date:: 01-14-2021 History of Any Multi-Drug Resistant Organisms: None Reported Past Surgical History: Heart Catheterization With Stent Additional Past Anesthesia/Blood Transfusion Reaction / Comment(s): No Hx of transfusion Date of Last Stent Placement:: January 2021 Past Psychological History: No Psychological Hx Reported Smoking Status: Former smoker Past Alcohol Use History: Rare Past Drug Use History: Marijuana Additional Drug Use History / Comment(s): Marijuana daily - Past Family History Mother Additional Family Medical History / Comment(s): leukemia Father Additional Family Medical History / Comment(s): ETOH Medications and Allergies Home Medications Medication Instructions Recorded Confirmed Type Atorvastatin [Lipitor] 80 mg PO DAILY #90 tab 01/31/21 04/02/24 Rx Losartan [Cozaar] 25 mg PO DAILY #90 tab 02/01/21 04/02/24 Rx predniSONE 60 mg PO DAILY #30 tab 04/01/24 04/02/24 Rx Albuterol Inhaler [Ventolin Hfa 2 puff INHALATION RT-Q4H PRN 04/02/24 04/02/24 History Inhaler] Azithromycin [Zithromax] See Taper PO DIRECTED 04/02/24 04/02/24 History Metoprolol Succinate [Metoprolol 25 mg PO DAILY 04/02/24 04/02/24 History Succinate ER] Allergies Allergy/AdvReac Type Severity Reaction Status Date / Time No Known Allergies Allergy Verified 04/02/24 09:08 Physical Exam Vitals: Vital Signs Temp Pulse Pulse Resp BP BP Pulse Ox 04/03/24 07:00 97.4 F L 85 16 107/64 98 04/03/24 01:37 98 F 77 16 104/65 98 04/02/24 18:54 97.7 F 76 16 105/70 99 04/02/24 18:24 98.1 F 85 20 131/79 98 04/02/24 18:20 80 04/02/24 18:12 77 100 04/02/24 16:23 97.5 F L 79 19 116/79 96 04/02/24 15:57 74 16 100/61 97 04/02/24 10:30 69 16 125/84 98 Intake and Output 04/02/24 04/03/24 04/03/24 22:59 06:59 14:59 Intake Total 147.372 Balance 147.372 Intake: Intake, IV Titration 147.372 Amount Heparin Sod,Pork in 0.45% 147.372 NaCl 25,000 unit In 0.45 % NaCl 1 250ml.bag @ 18 UNITS/KG/HR 14.696 mls/hr IV .Q17H1M [facility] Rx#: [id number] Other: # Voids 3 1 # Bowel Movements 0 Weight 81.647 kg Results - Lab Results Most recent lab results Calcium 9.5 mg/dL (8.7-10.3) 04/03/24 04:42 04/03/24 04:42 04/03/24 04:42 Assessment and Plan Plan: Assessment: 1. Acute kidney injury secondary to ATN versus progression of underlying chroni c kidney disease. Creatinine fairly stable this admission. 2.3 today. No hydronephrosis noted on kidney ultrasound. UA benign. 2. Chronic kidney disease stage IIIb with creatinine 1.6 in January 2021 and 2.3 in August 2022. Etiology is nephrosclerosis. 3. Metabolic acidosis secondary to acute kidney injury and IV fluids. 4. Acute hypoxic respiratory failure secondary to COPD exacerbation. 5. Coronary artery disease with cardiac stent placed in the past. 6. Hypertension with chronic kidney disease. Controlled. Plan: Change normal saline to bicarb drip. Check bladder scan to rule out urinary retention. Avoid nephrotoxins. Continue to monitor renal function and urine output. Thank you for the consultation. I will continue to follow the patient with you during his hospital stay.
[2024-04-03] MEDS: APIXABAN 5 MG TAB PO SCH (09:58)
[2024-04-03] MEDS: ASPIRIN 81 MG PO SCH (09:58)
[2024-04-03] MEDS: DEXTROSE 5% IN WATER 1,000 ML with SODIUM BICARB (1 MEQ/ML) 150 ML IV SCH (09:58)
--- NOTE | 2024-04-03 10:36 | P.PN ---
Subjective Progress Note Date: 04/03/24 63-year-old male patient, known history of COPD, presented to the hospital because of worsening shortness of breath. The patient is also known to have coronary artery disease, previous inferior wall myocardial infarction back in 2020 secondary to total occlusion of the RCA requiring angioplasty and stenting. He is also known to have chronic kidney disease, stage III. Previous echocardiogram also showed mild impairment of LV function with an EF of around 40 to 45%. Is a chronic smoker. In the emergency, the patient was found to have a white cell count of 14.6, hemoglobin 15.9, a urine drug screen was positive for marijuana and negative for alcohol. Sodium was 142, potassium of 4.7, bicarb of 20, BUN 39 with a creatinine of 2.1. LFTs were normal. The initial lactic acid level was at 6.1 dropped down to 1.7 with fluids. For set of troponin is been negative. Chest x-ray was completed and it showed hyperinflation without any other acute abnormalities and the VQ scan was of a low probability. The patient is currently on 2 L of oxygen by nasal cannula with a pulse ox of 98%. Started on DuoNeb nebulized treatments [id number]. Started on IV Solu-Medrol. He is also on IV fluids with normal saline at 75 cc an hour. Noted the patient came into the Emergency Department 48 hours ago and he was seen for the same problem, diagnosed having COPD exacerbation and the viral screen was negative and the patient was discharged home on a prednisone burst taper and Zithromax. The patient is seen today April 03, 2024 in follow-up on the regular medical floor. He is currently sitting up in bed. Awake and alert in no acute distress. Feeling quite a bit better today compared to yesterday. Pulmonary embolism and DVT were ruled out. He is being treated for COPD exacerbation. U ltrasound of the bladder revealed no evidence of obstructive uropathy. Cortical thinning bilaterally suggestive of chronic kidney disease. White count 16.3. Hemoglobin 14.2. Sodium 142. Potassium 5.5. BUN 45. Creatinine 2.3. Glucose 141. He has been initiated on D5W with 3 A of sodium bicarbonate at 75 mL/h. Transitioned to Eliquis per cardiology. Remains on bronchodilators and steroids . Objective - Vital Signs Vital signs: Vital Signs Temp 97.4 F L 04/03/24 07:00 Pulse 85 04/03/24 07:00 Resp 16 04/03/24 07:00 BP 107/64 04/03/24 07:00 Pulse Ox 98 04/03/24 07:00 FiO2 Intake & Output 04/02/24 04/03/24 04/03/24 18:59 06:59 18:59 Intake Total 136.428 147.372 Balance 136.428 147.372 Weight 81.647 kg Intake: Intake, IV Titration 136.428 147.372 Amount Heparin Sod,Pork in 0.45% 136.428 147.372 NaCl 25,000 unit In 0.45 % NaCl 1 250ml.bag @ 18 UNITS/KG/HR 14.696 mls/hr IV .Q17H1M [facility] Rx#: [id number] Other: # Voids 3 1 # Bowel Movements 0 - Exam GENERAL EXAM: Alert, 63-year-old male, on 1 L nasal cannula, comfortable in no apparent distress. HEAD: Normocephalic. EYES: Normal reaction of pupils, equal size. NOSE: Clear with pink turbinates. THROAT: No erythema or exudates. NECK: No masses, no JVD. CHEST: No chest wall deformity. LUNGS: Equal air entry with no crackles, wheeze, rhonchi or dullness. CVS: S1 and S2 normal with no audible murmur, regular rhythm. ABDOMEN: No hepatosplenomegaly, normal bowel sounds, no guarding or rigidity. SPINE: No scoliosis or deformity SKIN: No rashes CENTRAL NERVOUS SYSTEM: No focal deficits, tone is normal in all 4 extremities. EXTREMITIES: There is no peripheral edema. No clubbing, no cyanosis. Peripheral pulses are intact. - Labs CBC & Chem 7: 04/03/24 04:42 04/03/24 04:42 Labs: Abnormal Lab Results - Last 24 Hours (Table) 04/01/24 04/02/24 04/03/24 Range/Units 21:11 14:59 04:42 WBC 16.37 H (4.50-10.00) X 10*3/uL APTT 72.1 H (22.0-30.0) sec Chloride (96-109) mmol/L Carbon Dioxide (21.6-31.8) mmol/L Anion Gap (4.00-12.00) mmol/L BUN (9.0-27.0) mg/dL Creatinine (0.6-1.5) mg/dL Est GFR (CKD-EPI) (>=60) Glucose (70-110) mg/dL Osmolality 307 H (275-295) mOsm/kg AST (14-35) U/L Total Protein (6.2-8.2) g/dL 04/03/24 04/03/24 Range/Units 04:42 04:42 WBC (4.50-10.00) X 10*3/uL APTT 65.3 H (22.0-30.0) sec Chloride 113 H (96-109) mmol/L Carbon Dioxide 14.2 L (21.6-31.8) mmol/L Anion Gap 14.80 H (4.00-12.00) mmol/L BUN 45.4 H (9.0-27.0) mg/dL Creatinine 2.3 H (0.6-1.5) mg/dL Est GFR (CKD-EPI) 31 L (>=60) Glucose 141 H (70-110) mg/dL Osmolality (275-295) mOsm/kg AST 50 H (14-35) U/L Total Protein 5.9 L (6.2-8.2) g/dL Assessment and Plan Assessment: Acute exacerbation of COPD with secondary shortness of breath. VQ scan is negative. Doppler of the lower extremity is negative. Chest x-ray shows hyperinflation without any acute process Acute hypoxic respiratory failure currently on 1 L of oxygen by nasal cannula Shortness of breath secondary to above Coronary artery disease with previous inferior wall DC back in 2020 requiring stenting of RCA Chronic stage III kidney disease Hypertension Hyperlipidemia Former smoker and he quit in 2020 Marijuana use Plan: The patient was seen and evaluated Labs and medications reviewed Continue bronchodilators, steroids Titrate down/off the FiO2 as tolerated Anticoagulated per cardiology Initiated on a bicarb drip per nephrology We will continue to follow I have personally seen and examined the patient, performed the documentation and the assessment and plan as written. Number of minutes spent on the visit: 10 Dictation was produced using [employer] software. Please excuse any grammatical, word or spelling errors.
[2024-04-03] MEDS: AMIODARONE 200 MG TAB PO SCH (10:50)
--- NOTE | 2024-04-03 11:45 | P.CRDCN ---
History of Present Illness Consult date: 04/03/24 History of present illness: - . HPI: This is a 63-year-old gentleman with a known history of acute inferior KS in 2020 underwent stenting of a totally occluded RCA. He also has what seems to be paroxysmal atrial fibrillation hypertension hypercholesterolemia and acute on chronic kidney injury with creatinine in the range of 2.0. He came to the hospital complaining of shortness of breath was found to be in atrial fibrillation rate of about 110 bpm and since then he has been in and out of atrial fibrillation resting comfortably troponins are normal no chest pain. He has not been compliant with medications however it is unclear exactly what he is taking but on reviewing the chart in the office he was seen in November and he was on atorvastatin 80 mg daily Eliquis 5 mg twice daily losartan 25 mg daily Toprol-XL 25 mg daily and aspirin 81 mg daily. On questioning patient is not sure if he is on Eliquis. However he is currently in atrial fibrillation is fairly well-controlled. I am recommending that we resume aspirin 81 mg daily Eliquis 5 mg twice daily amiodarone 200 mg daily to see if he will remain in sinus rhythm losartan 25 mg daily and increase activity and possible discharge to see Dr. Hernandez in 2 weeks.. RELEVANT PAST MEDICAL HISTORY: Acute inferior KS and stenting of RCA in 2020, acute on chronic kidney injury, hypertension, hypercholesterolemia. MEDICATIONS: Aspirin 81 mg daily, Eliquis 5 mg twice daily, losartan 25 mg daily, metoprolol succinate 25 mg daily. Patient however claims he is not sure if he is taking all of his medications he only remembers 3 medicines and Eliquis is not one of them ALLERGIES: None. REVIEW OF SYSTEMS: Shortness of breath when he feels his heart racing. No chest pain to suggest angina no palpitations all the time only randomly. No dizziness or lightheadedness at this time.. PHYSICIAL EXAM: Vitals are stable no JVD S1-S2 with irregularity and rhythm is audible lungs reveal decent air entry abdomen is soft nontender lower extremities reveal normal pulses no edema Central nervous system is normal. IMPRESSION: 1. Atrial fibrillation with a moderate ventricular rate. 2. CAD with prior PCI of RCA in the setting of acute inferior KS. 3. Acute on chronic kidney injury. 4. Cholesterolemia. 5.. RECOMMENDATIONS: Recommending aspirin Eliquis losartan metoprolol and amiodarone. Increase activity and if rate control is reasonable can be discharged and follow-up with Dr. Hernandez in 2 weeks. Explained to the patient at length and advised him the importance of being compliant with medications. Past Medical History Past Medical History: Coronary Artery Disease (CAD), COPD, Myocardial Infarction ([place]) Last Myocardial Infarction Date:: 01-14-2021 History of Any Multi-Drug Resistant Organisms: None Reported Past Surgical History: Heart Catheterization With Stent Additional Past Anesthesia/Blood Transfusion Reaction / Comment(s): No Hx of transfusion Date of Last Stent Placement:: January 2021 Past Psychological History: No Psychological Hx Reported Smoking Status: Former smoker Past Alcohol Use History: Rare Past Drug Use History: Marijuana Additional Drug Use History / Comment(s): Marijuana daily - Past Family History Mother Additional Family Medical History / Comment(s): leukemia Father Additional Family Medical History / Comment(s): ETOH Medications and Allergies Home Medications Medication Instructions Recorded Confirmed Type Atorvastatin [Lipitor] 80 mg PO DAILY #90 tab 01/31/21 04/02/24 Rx Losartan [Cozaar] 25 mg PO DAILY #90 tab 02/01/21 04/02/24 Rx predniSONE 60 mg PO DAILY #30 tab 04/01/24 04/02/24 Rx Albuterol Inhaler [Ventolin Hfa 2 puff INHALATION RT-Q4H PRN 04/02/24 04/02/24 History Inhaler] Azithromycin [Zithromax] See Taper PO DIRECTED 04/02/24 04/02/24 History Metoprolol Succinate [Metoprolol 25 mg PO DAILY 04/02/24 04/02/24 History Succinate ER] Allergies Allergy/AdvReac Type Severity Reaction Status Date / Time No Known Allergies Allergy Verified 04/02/24 09:08 Physical Exam Vitals: Vital Signs Temp Pulse Pulse Resp BP BP Pulse Ox 04/03/24 08:00 85 16 04/03/24 07:00 97.4 F L 85 16 107/64 98 04/03/24 01:37 98 F 77 16 104/65 98 04/02/24 18:54 97.7 F 76 16 105/70 99 04/02/24 18:24 98.1 F 85 20 131/79 98 04/02/24 18:20 80 04/02/24 18:12 77 100 04/02/24 16:23 97.5 F L 79 19 116/79 96 04/02/24 15:57 74 16 100/61 97 Intake and Output 04/02/24 04/03/24 04/03/24 22:59 06:59 14:59 Intake Total 147.372 Balance 147.372 Intake: Intake, IV Titration 147.372 Amount Heparin Sod,Pork in 0.45% 147.372 NaCl 25,000 unit In 0.45 % NaCl 1 250ml.bag @ 18 UNITS/KG/HR 14.696 mls/hr IV .Q17H1M [facility] Rx#: [id number] Other: # Voids 3 1 # Bowel Movements 0 Weight 81.647 kg Results 04/03/24 04:42 04/03/24 04:42 Cardiac Enzymes 04/03/24 Range/Units 04:42 AST 50 H (14-35) U/L Coagulation 04/02/24 04/03/24 Range/Units 14:59 04:42 APTT 72.1 H 65.3 H (22.0-30.0) sec CBC 04/03/24 Range/Units 04:42 WBC 16.37 H (4.50-10.00) X 10*3/uL RBC 4.62 (4.40-5.60) X 10*6/uL Hgb 14.2 (13.0-17.0) g/dL Hct 42.9 (39.6-50.0) % Plt Count 203 (140-440) X 10*3/uL Comprehensive Metabolic Panel 04/03/24 Range/Units 04:42 Sodium 142 (135-145) mmol/L Potassium 5.5 (3.5-5.5) mmol/L Chloride 113 H (96-109) mmol/L Carbon Dioxide 14.2 L (21.6-31.8) mmol/L BUN 45.4 H (9.0-27.0) mg/dL Creatinine 2.3 H (0.6-1.5) mg/dL Glucose 141 H (70-110) mg/dL Calcium 9.5 (8.7-10.3) mg/dL AST 50 H (14-35) U/L ALT 26 (10-49) U/L Alkaline Phosphatase 72 (41-126) U/L Total Protein 5.9 L (6.2-8.2) g/dL Albumin 3.9 (3.8-4.9) g/dL Current Medications Generic Name Dose Route Start Last Admin Trade Name Freq PRN Reason Stop Dose Admin Albuterol/Ipratropium 3 ml 04/02/24 10:36 04/02/24 18:09 Ipratropium-Albuterol 3 Ml Neb INHALATION 3 ml RT-QID PRN Administration Shortness Of Breath Or Wheezing Alprazolam 0.5 mg 04/02/24 18:27 04/02/24 18:34 Alprazolam 0.5 Mg Tab PO 0.5 mg BID PRN Administration Anxiety Amiodarone HCl 200 mg 04/03/24 09:45 04/03/24 10:50 Amiodarone 200 Mg Tab PO 200 mg DAILY [facility] Administration Apixaban 5 mg 04/03/24 09:45 04/03/24 09:58 Apixaban 5 Mg Tab PO 5 mg BID [facility] Administration Protocol Aspirin 81 mg 04/03/24 09:45 04/03/24 09:58 Aspirin 81 Mg PO 81 mg DAILY [facility] Administration Atorvastatin Calcium 80 mg 04/03/24 09:00 04/03/24 08:19 Atorvastatin 80 Mg Tab PO 80 mg DAILY [facility] Administration Guaifenesin 600 mg 04/02/24 10:45 04/03/24 08:19 Guaifenesin 600 Mg Tablet.Er PO 600 mg Q12HR [facility] Administration Guaifenesin/Codeine Phosphate 10 ml 04/02/24 10:36 Guaifenesin-Coden 100-10mg/5ml 10 Ml Cup PO Q6HR PRN Cough Sodium Bicarbonate 150 ml/ 1,150 mls @ 75 mls/hr 04/03/24 09:00 04/03/24 09:58 Dextrose/Water IV 75 mls/hr .[id number] [facility] Administration Losartan Potassium 25 mg 04/04/24 09:00 Losartan 25 Mg Tab PO DAILY [facility] Methylprednisolone Sodium Succinate 40 mg 04/02/24 11:00 04/03/24 08:20 Methylprednisolone Sod Succi 40 Mg/Ml 1 Ml Vial IVP 40 mg Q12HR [facility] Administration Metoprolol Succinate 25 mg 04/02/24 10:45 04/03/24 10:50 Metoprolol Succinate (Er) 25 Mg Tab.Er.24h PO 25 mg DAILY [facility] Administration Naloxone HCl 0.2 mg 04/01/24 22:57 Naloxone 0.4 Mg/Ml 1 Ml Vial IV Q2M PRN Opioid Reversal Sodium Bicarbonate 650 mg 04/02/24 21:00 04/03/24 08:19 Sodium Bicarbonate Tab 650 Mg Tab PO 650 mg BID [facility] Administration Intake and Output 04/02/24 04/03/24 04/03/24 22:59 06:59 14:59 Intake Total 147.372 Balance 147.372 Intake: Intake, IV Titration 147.372 Amount Heparin Sod,Pork in 0.45% 147.372 NaCl 25,000 unit In 0.45 % NaCl 1 250ml.bag @ 18 UNITS/KG/HR 14.696 mls/hr IV .Q17H1M [facility] Rx#: [id number] Other: # Voids 3 1 # Bowel Movements 0 Weight 81.647 kg 04/03/24 04:42 04/03/24 04:42
--- NOTE | 2024-04-03 14:35 | P.DS ---
Providers Date of admission: 04/01/24 22:57 Discharge Diagnosis: Shortness of breath Acute COPD exacerbation (no home O2) Elevated D-dimer Hyperkalemia Metabolic acidosis Acute kidney injury Hypercalcemia Hypertension Hyperlipidemia Hospital Course: History of present illness; patient is a 63-year-old gentleman with past medical history significant for COPD, hyperlipidemia, hypertension presented to the ER because of worsening shortness of breath. Patient stated he was all right 2 days back and he started developing shortness of breath. Shortness of breath was present on rest as on exertion. Patient was seen in the ER, and was discharged on breathing treatments. Patient denies any chest pain. There is no complaint of orthopnea or PND. There is no complaint of swelling of feet. Patient is active smoker and continues to smoke and has been diagnosed with COPD. Because of this worsening shortness of breath, patient was sent to the ER Initial lab work done in the ER showed WBC 16.5, hemoglobin 15.9, platelet count 247, D-dimer 1.53 sodium 142, potassium 5.5, carbon dioxide 13, anion gap 17, BUN 39, creatinine 2.49, lactate 6.1, bilirubin 2.2, calcium 10.5 troponin 0.012 EKG done in the ER showed heart rate of 96, no ST segment elevation or depression seen, no T-wave inversions seen. Chest x-ray done in the ER showed no acute cardiopulmonary process Patient admitted to internal medicine service 04/03/24 Patient seen and evaluated. States he felt short of breath last night for the 45 minutes. He says it may be induced by anxiety. Currently breathing on room air satting at 98%. Was seen by grain mixer and was cleared from a cardio standpoint. Patient to be discharged with amiodarone 200 mg p.o. daily, Eliquis 5 mg p.o. twice daily, sodium bicarbonate tab 650 mg p.o. twice daily, Spiriva, Symbicort, prednisone taper. Patient was prescribed with Xanax 0.5 mg 14 tabs for anxiety/panic attacks, will follow-up with PCP regarding his anxiety. He will establish new PCP in 1 week. Patient also follow-up with cardiology in 2 weeks, pulmonology in 10 days for outpatient PFT, nephrology in 2 weeks. He is being discharged home. Vital signs reviewed and stable. Physical Exam: GENERAL: The patient is alert and oriented x3, not in any acute distress. Well developed, well nourished. HEENT: Pupils are round and equally reacting to light. EOMI. No scleral icterus. No conjunctival pallor. Normocephalic, atraumatic. No pharyngeal erythema. No thyromegaly. CARDIOVASCULAR: S1 and S2 present. No murmurs, rubs, or gallops. PULMONARY: CTA bilaterally, no wheezing, no rales, no ronchi ABDOMEN: Soft, nontender, nondistended, normoactive bowel sounds. No palpable organomegaly. MUSCULOSKELETAL: No joint swelling or deformity. EXTREMITIES: No cyanosis, clubbing, or pedal edema. NEUROLOGICAL: Gross neurological examination did not reveal any focal deficits. SKIN: No rashes. A total of greater than 30 minutes of time were spent preparing this complex discharge summary. Patient was discharge on April 03, 2024 Expected date of discharge: 04/03/24 Attending physician: Ming Coley Consults: 04/02/24 10:29 Consult Physician Routine Consulting Provider: Floridalma Newman Consult Reason/Comments: Shortness of breath, COPD, elevated D-dimer Do you want consulting provider notified?: Yes 04/02/24 10:38 Consult Physician Routine Consulting Provider: Myah Mendez Consult Reason/Comments: Acute kidney injury Do you want consulting provider notified?: Yes 04/02/24 16:57 Consult Physician Routine Consulting Provider: Mychal Wong Consult Reason/Comments: a fib Do you want consulting provider notified?: Yes Primary care physician: Stated None Patient Condition at Discharge: Stable Plan - Discharge Summary Discharge Rx Participant: No New Discharge Prescriptions: New Amiodarone [Cordarone] 200 mg PO DAILY #30 tab Sodium Bicarbonate Tab 650 mg PO BID #30 tab Tiotropium 18 Mcg/Puff [Spiriva] 1 puff INHALATION DAILY #30 each ALPRAZolam [Xanax] 0.5 mg PO BID PRN #14 tab PRN Reason: Anxiety predniSONE [Deltasone] See Taper PO DAILY 4 Days #8 tab Apixaban [Eliquis] 5 mg PO BID #30 tab Budesonide-Formot 160-4.5 Mcg [Symbicort 160-4.5 Mcg Inhaler] 2 puff INHALATION BID #1 each Continue Losartan [Cozaar] 25 mg PO DAILY #90 tab Azithromycin [Zithromax] See Taper PO DIRECTED Atorvastatin [Lipitor] 80 mg PO DAILY #90 tab Albuterol Inhaler [Ventolin Hfa Inhaler] 2 puff INHALATION RT-Q4H PRN PRN Reason: Shortness Of Breath Metoprolol Succinate [Metoprolol Succinate ER] 25 mg PO DAILY Discontinued predniSONE 60 mg PO DAILY #30 tab Discharge Medication List Atorvastatin [Lipitor] 80 mg PO DAILY #90 tab 01/31/21 [Rx] Losartan [Cozaar] 25 mg PO DAILY #90 tab 02/01/21 [Rx] Albuterol Inhaler [Ventolin Hfa Inhaler] 2 puff INHALATION RT-Q4H PRN 04/02/24 [History] Azithromycin [Zithromax] See Taper PO DIRECTED 04/02/24 [History] Metoprolol Succinate [Metoprolol Succinate ER] 25 mg PO DAILY 04/02/24 [History] ALPRAZolam [Xanax] 0.5 mg PO BID PRN #14 tab 04/03/24 [Rx] Amiodarone [Cordarone] 200 mg PO DAILY #30 tab 04/03/24 [Rx] Apixaban [Eliquis] 5 mg PO BID #30 tab 04/03/24 [Rx] Budesonide-Formot 160-4.5 Mcg [Symbicort 160-4.5 Mcg Inhaler] 2 puff INHALATION BID #1 each 04/03/24 [Rx] Sodium Bicarbonate Tab 650 mg PO BID #30 tab 04/03/24 [Rx] Tiotropium 18 Mcg/Puff [Spiriva] 1 puff INHALATION DAILY #30 each 04/03/24 [Rx] predniSONE [Deltasone] See Taper PO DAILY 4 Days #8 tab 04/03/24 [Rx] Follow up Appointment(s)/Referral(s): Luiz Carmona MD [RESIDENT] - 1 Week None,Stated [Primary Care Provider] - 1-2 days Ben Emmanuel DO [STAFF PHYSICIAN] - 2 Weeks Mychal Wong MD [STAFF PHYSICIAN] - 2 Weeks Floridalma Newman MD [STAFF PHYSICIAN] - 10 Days Patient Instructions/Handouts: A-fib (Atrial Fibrillation) (DC), COPD (Chronic Obstructive Pulmonary Disease) (DC) Discharge Disposition: HOME SELF-CARE
[2024-04-03 16:03] VITALS: BP 117/72; PULSE 84; TEMP 97.7
[2024-04-04] MEDS ORDERED: LOSARTAN 25 MG TAB PO SCH (09:00)
--- NOTE | 2024-04-04 09:23 | CA ---
Transthoracic Echo Report Name: Delano Viramontes Age: 63 Gender: M : 1960 Exam Date: 04/03/2024 15:37 Exam Location: [facility] [facility] Ht (in): 73 Wt (lb): 180 Ordering Physician: Sergio Resendiz MD Attending/Referring Phys: Healthcare Market Consultant Comfort Taylor RDCS Procedure CPT: Indications: SHORTNESS OF BREATH Cardiac Hx: A-Flutter Technical Quality: Good Contrast 1: Total Dose (mL): Contrast 2: Total Dose (mL): MEASUREMENTS (Male / Female) Normal Values 2D ECHO LV Diastolic Diameter PLAX 4.0 cm 4.2 - 5.9 / 3.9 - 5.3 cm LV Systolic Diameter PLAX 2.3 cm IVS Diastolic Thickness 1.1 cm 0.6 - 1.0 / 0.6 - 0.9 cm LVPW Diastolic Thickness 1.4 cm 0.6 - 1.0 / 0.6 - 0.9 cm LV Relative Wall Thickness 0.6 RV Internal Dim ED PLAX 2.8 cm LA Systolic Diameter LX 3.2 cm 3.0 - 4.0 / 2.7 - 3.8 cm LV Diastolic Volume MOD BP 58.6 cm??? 67 - 155 / 56 - 104 cm??? LV Systolic Volume MOD BP 17.6 cm??? 22 - 58 / 19 - 49 cm??? LV Ejection Fraction MOD BP 70.0 % >= 55 % LV Cardiac Index MOD BP 1477.7 cm???/min???m??? LV Diastolic Volume MOD 4C 58.6 cm??? LV Systolic Volume MOD 4C 16.4 cm??? LV Ejection Fraction MOD 4C 71.9 % LV Cardiac Index MOD 4C 1518.7 cm???/min???m??? LV Diastolic Length 4C 6.9 cm LV Systolic Length 4C 5.6 cm LV Diastolic Volume MOD 2C 56.9 cm??? LV Systolic Volume MOD 2C 17.5 cm??? LV Ejection Fraction MOD 2C 69.2 % LV Cardiac Index MOD 2C 1421.0 cm???/min???m??? LV Diastolic Length 2C 7.2 cm LV Systolic Length 2C 6.2 cm LA Volume 49.0 cm??? 18 - 58 / 22 - 52 cm??? LA Volume Index 23.9 cm???/m??? 16 - 28 cm???/m??? M-MODE Aortic Root Diameter MM 3.5 cm LA Systolic Diameter MM 3.1 cm LA Ao Ratio MM 0.9 AV Cusp Separation MM 2.0 cm DOPPLER TR Peak Velocity 220.0 cm/s TR Peak Gradient 19.4 mmHg FINDINGS Left Ventricle Left ventricular ejection fraction is estimated at 55-60 % Left ventricular cavity size normal. Left ventricular wall thickness normal. Normal left ventricular systolic function with no obvious regional wall motion abnormalities. Right Ventricle Normal right ventricular size and function. Right ventricular systolic pressure within normal limits. Right Atrium Mild right atrial dilatation. Left Atrium Mild left atrial dilatation. Mitral Valve Structurally normal mitral valve. Mild mitral regurgitation. No mitral stenosis. Aortic Valve Trileaflet aortic valve. No aortic valve stenosis or regurgitation. Tricuspid Valve Structurally normal tricuspid valve. No tricuspid stenosis. Mild tricuspid regurgitation. Pulmonic Valve Structurally normal pulmonic valve. Trace pulmonic regurgitation. No pulmonic stenosis. Pericardium No pericardial or pleural effusion. Aorta Normal size aortic root and proximal ascending aorta. CONCLUSIONS Normal LV size and systolic function. Mild mitral and tricuspid regurgitation. No pericardial effusion. No significant pulmonary hypertension Previewed by: Dr. Luis Velez MD (Electronically Signed) Final Date: 04 April 2024 09:22
== END 2024-04-03 16:37 | disposition home or self-care (01) ==
LOC: EC 19:19 → 6NMEDSUR 22:57
PROVIDERS: ADMIT Hospitalist; ATTEND Hospitalist
DX: J44.1 Chronic obstructive pulmonary disease with (acute) exacerbation (principal); J96.01 Acute respiratory failure with hypoxia; E87.20 Acidosis, unspecified; E87.5 Hyperkalemia; E83.52 Hypercalcemia; N17.8 Other acute kidney failure; N17.0 Acute kidney failure with tubular necrosis; N18.32 Chronic kidney disease, stage 3b; I12.9 Hypertensive chronic kidney disease with stage 1 through stage 4 chronic kidney disease, or unspecified chronic kidney disease; I48.0 Paroxysmal atrial fibrillation; I25.10 Atherosclerotic heart disease of native coronary artery without angina pectoris; I25.82 Chronic total occlusion of coronary artery; I25.2 Old myocardial infarction; F41.0 Panic disorder [episodic paroxysmal anxiety]; F12.90 Cannabis use, unspecified, uncomplicated; E78.00 Pure hypercholesterolemia, unspecified; Z91.148 Patient's other noncompliance with medication regimen for other reason; Z79.01 Long term (current) use of anticoagulants; Z79.02 Long term (current) use of antithrombotics/antiplatelets; Z79.82 Long term (current) use of aspirin; Z79.52 Long term (current) use of systemic steroids; Z79.899 Other long term (current) drug therapy; Z87.891 Personal history of nicotine dependence; Z95.818 Presence of other cardiac implants and grafts; Z95.5 Presence of coronary angioplasty implant and graft
CPT/HCPCS: 96376 ×3; 96366 ×3; 96361; 96365; 96375 ×2; 99285; 36415; 94640; 94760; 93005; 93306; 85379; 83930; 83880; 80053 ×3; 82375; 82803; 83605; 84484; 85025 ×2; 85027; 85610; 85730 ×3; 81001; 87040; 80306; 80320; 80179; 71046; 76770; 93970; 78582; G0378 ×3; A9540; A9567; J2060; J1644 ×3; J2919 ×2

== ENCOUNTER → 2024-07-31 | Outpatient (CLI) | payer BC | END | disposition home or self-care (01) | LOC: LABWHC1 15:19 | PROVIDERS: ATTEND Internal Medicine Cardiovascular Disease | DX: I48.0 Paroxysmal atrial fibrillation (principal) | CPT/HCPCS: 36415; 84443 ==

== ENCOUNTER → 2024-12-18 | Outpatient (CLI) | payer BC | END | disposition home or self-care (01) | LOC: LABWHC1 13:51 | PROVIDERS: ATTEND Internal Medicine Cardiovascular Disease | DX: I48.0 Paroxysmal atrial fibrillation (principal) | CPT/HCPCS: 36415; 84443 ==